=== PATIENT | female | born 1975 | race Caucasian/White ===

== ENCOUNTER 2020-05-17 11:52 | Emergency (ER) | payer OTHER, SELFPAY ==
--- NOTE | ~2020-05-17 | XR_ITS ---
EXAMINATION: XR chest 1V portable EXAM DATE: 05/17/2020 14:04 INDICATION: Fever. TECHNIQUE: Portable AP frontal chest x-ray was obtained. There is no prior study for comparison. FINDINGS: The lungs are clear. There are no pleural effusions. Cardiac silhouette is prominent but magnified on this AP technique. There is no pneumothorax suspected. The bones and soft tissues are unremarkable. There is aortic arteriosclerosis. There are cholecystectomy clips. IMPRESSION: No acute cardiopulmonary findings. Reviewed, dictated and finalized at location B.
--- NOTE | ~2020-05-17 | XR_ITS ---
EXAMINATION: XR finger 1st RT min 2V EXAM DATE: 05/17/2020 12:35 INDICATION: Possible foreign body under right thumb nailbed. Pain. TECHNIQUE: Right 1st finger frontal, lateral and oblique projections obtained and reviewed. There is no prior study for comparison. FINDINGS: There are no acute right 1st finger fractures or dislocations identified. There is no subc utaneous gas. The soft tissue is unremarkable. There are no radiopaque foreign bodies. There are no bony erosions identified. IMPRESSION: 1. Unremarkable right thumb exam. Reviewed, dictated and finalized at location B.
[2020-05-17 11:55] VITALS: BP 132/81; PULSE 92; RESP 20; TEMP 37.5; O2SAT 99
--- NOTE | 2020-05-17 12:20 | ED.EXTPRO ---
HPI - Extremity Problem General Chief complaint: Skin/Abscess/Foreign Body Stated complaint: fever, hand swelling and pain Time Seen by Provider: 05/17/20 12:01 Source: patient Mode of arrival: ambulatory Limitations: no limitations History of Present Illness HPI Narrative: Patient is a 45-year-old female who presents to emergency department for evaluation of right thumb pain coupled with fever that started last night patient notes mild aching of the thumb but denies injury or trauma patient notes she took ibuprofen with improvement of the fever patient denies any urinary symptoms URI symptoms sick contacts or similar occurrence and on arrival is in the room in no distress. Related Data Home Medications Medication Instructions Recorded Confirmed atorvastatin 05/17/20 escitalopram oxalate mg 05/17/20 hydrocodone-acetaminophen 05/17/20 lorazepam 05/17/20 metformin mg PO 05/17/20 Allergies Allergy/AdvReac Type Severity Reaction Status Date / Time gabapentin Allergy Unknown Nausea and Verified 05/17/20 12:03 Vomiting morphine Allergy Unknown Nausea and Verified 05/17/20 12:03 Vomiting nitrofurantoin Allergy Unknown Nausea and Verified 05/17/20 12:03 Vomiting Sulfa (Sulfonamide Allergy Unknown Vomiting Verified 05/17/20 12:03 Antibiotics) Review of Systems Review of Systems: All systems reviewed & are unremarkable except as noted in HPI and below PMFSH Past Medical History Medical History (Updated 05/17/20 @ 15:08 by Kb Lowe PA-C) Diabetes mellitus Social History Social History Smoking status: Current every day smoker Exam Narrative: Exam Narrative: GENERAL: Well-appearing, well-nourished, and in no acute distress. HEAD: Normocephalic, atraumatic. EYES: PERRLA and EOMI. ENT: Patient with swelling involving CHEST: Clear to auscultation. No respiratory distress. No wheezes rales or rhonchi HEART: Regular rate and rhythm. No murmur heard. Normal peripheral pulses. EXTREMITIES: Normal range of motion. No edema. No deformity of the right thumb SKIN: Warm, dry, no rash. NEURO: No focal deficits. Alert and oriented x3. Neurovascularly intact. Capillary refill less than 2-second PSYCH: Normal mood and affect. Course Course Emergency Course: Patient has been hydrated with blood work and imaging in the emergency department no high risk changes patient made aware of these findings Reevaluation(s) Reevaluation #1: Patient has remained stable denying any thumb pain resting comfortably aware of case findings treatment plan and diagnosis felt appropriate for outpatient reevaluation provided with reasons to return Date: 05/17/20 Time: 14:58 Vital Signs Vital signs: Vital Signs Temperature 99.5 F 05/17/20 11:55 Pulse Rate 92 05/17/20 11:55 Respiratory Rate 20 05/17/20 11:55 Blood Pressure 132/81 05/17/20 11:55 Pulse Oximetry 99 05/17/20 11:55 Temperature 99.5 F 05/17/20 11:55 Pulse Rate 92 05/17/20 11:55 Respiratory Rate 20 05/17/20 11:55 Blood Pressure 132/81 05/17/20 11:55 Pulse Oximetry 99 05/17/20 11:55 MDM - Extremity (Nontraumatic) MDM Narrative Medical decision making narrative: Patient in the room in no distress no high risk changes in the blood work or imaging patient notes that she gets intermittent fevers every year of unknown etiology and that this feels the same. Patient was given medications in the emergency department with improvement. Patient without any obvious signs of infection. Patient denying any thumb pain. Patient felt appropriate for outpatient reevaluation pending COVID testing has been advised to self quarantine until results are obtained. Patient agrees with this plan and also notes she will return if symptoms worsen Imaging Data Radiologist's impression: ITS Impressions Finger X-Ray 05/17/20 12:39 IMPRESSION: 1. Unremarkable right thumb exam.
[2020-05-17 13:14] VITALS: TEMP 39.2
[2020-05-17 13:29] LABS: Add Urine Microscopic? YES; Appearance Urine Clear (Clear); Bilirubin Urine Negative (Negative); Blood Urine 1+ (Negative); Color Urine Colorless (Yellow); Glucose Urine UA Negative (Negative); Ketones Urine Negative (Negative); Leukocyte Esterase Ur Negative LEU/UL (Negative); Nitrate Urine Negative (Negative); Protein Urine Negative (Negative); Urobilinogen Urine Negative mg/dL (<2.0); WBC Urine 0-3 /hpf
[2020-05-17 13:30] LABS: Specific Grav Ur 1.003 (1.001-1.035)
[2020-05-17] MEDS: FAMOTIDINE 20 MG/2 ML VIAL IV PUSH (13:39)
[2020-05-17] MEDS: SODIUM CHLORIDE 0.9% IV 1,000 ML 999 ML IV CONT (13:39)
[2020-05-17 14:02] LABS: Basophils Percent Auto 0.3 % (0.2-1.2); Eosinophils Percent Auto 0.1 % (0-4.4); Immature Granulocyte Absolute 0.02 K/mm3 (0.00-0.031); Immature Granulocyte Percent A 0.3 % (0-0.5); Lymphocytes Absolute Auto 1.53 K/mm3 (0.9-3.2); Lymphocytes Percent Auto 22.6 % (18.3-44.2); Mean Corpuscular HGB Conc 33.3 g/dl (32-36); Mean Corpuscular Hemoglobin 30.9 pg (26-34); Mean Corpuscular Volume 92.8 fl (80-100); Mean Platelet Volume 9.8 fl (7.4-10.4); Monocytes Absolute Auto 0.4 K/mm3 (0.1-0.6); Monocytes Percent Auto 6.4 % (2.6-8.5); Neutrophils Absolute Auto 4.8 K/mm3 (1.3-6.7); Neutrophils Percent Auto 70.3 % (45.5-73.1); Platelet Count Result 262 k/mm3 (150-375); Red Blood Count 4.85 M/mm3 (4.2-5.4); Red Cell Distribution Width 12.5 % (11.5-14.5); White Blood Count 6.8 K/mm3 (4.5-10.0)
[2020-05-17 14:11] LABS: INR 0.9; Prothrombin Time 12.3 Seconds (11.1-14.7)
[2020-05-17 14:15] LABS: Lactic Acid Reflex < 0.5 mmol/L (0.7-2.1)
[2020-05-17 14:16] LABS: Alanine Aminotransferase 26 U/L (4-35); Alkaline Phosphatase 110 U/L (38-126); Aspartate Amino Transferase 29 U/L (14-36); Bilirubin,Total 0.5 mg/dL (0.2-1.3); Blood Urea Nitrogen 7 mg/dL (7-17); CRP 1.9 mg/dL (<1.0); Calcium 9.6 mg/dL (8.4-10.2); Carbon Dioxide 29 mmol/L (22-30); Chloride 100 mmol/L (98-107); Estimated CRCL calculation 82 ml/min; Estimated Glomerular Filt Rate > 60; Glucose 89 mg/dL (65-105); Sodium 139 mmol/L (137-145)
[2020-05-17 14:28] LABS: Erythrocyte Sedimentation Rate 20 mm/hr (0-20)
[2020-05-17 15:08] VITALS: BP 102/59; PULSE 78; RESP 19; TEMP 38.6; O2SAT 97
[2020-05-19 13:33] LABS: SARS-CoV-2 RNA PCR Negative
== END 2020-05-17 15:22 | disposition home or self-care (01) ==
PROVIDERS: Emergency Medicine Emergency Medical Services; Emergency Provider Emergency Medicine; PCP Internal Medicine
DX: R50.9 Fever, unspecified (principal); F17.200 Nicotine dependence, unspecified, uncomplicated; E11.9 Type 2 diabetes mellitus without complications; Z79.84 Long term (current) use of oral hypoglycemic drugs
CPT/HCPCS: 36415; 71045; 73140; 80053; 81001; 83605; 85025; 85610; 85652; 85730; 86140; 87040; 87081; 87635; 87804; 87880; 96361; 96365; 96375; 99284; C9803; J0131; J7030; U0003

== ENCOUNTER 2020-05-21 10:54 | Emergency (ER) | payer OTHER, SELFPAY ==
[2020-05-21 11:02] VITALS: BP 132/80; PULSE 86; RESP 18; TEMP 36.8; O2SAT 97
[2020-05-21 11:33] VITALS: BP 110/69; PULSE 82; RESP 20; O2SAT 98
--- NOTE | 2020-05-21 12:46 | ED.GENADULT ---
HPI - General Adult General Chief complaint: Allergic Reaction Stated complaint: thumb injury/allergic reaction Time Seen by Provider: 05/21/20 12:12 History of Present Illness HPI narrative: Patient is 45 y/o female complaining of right thumb pain starting 4 days ago. She states the her pain is moderate and it's worse with touch. She noticed minimal amount of drainage from under her nail. She does not recall any injury. 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 She denies current fever, chills, nausea or vomiting. Of note, she states that she had a fever 4 days and was evaluated here, but all her labs, COVID test, etc were negative. Her fever has resolved spontaneously since then. She is up to date on Tetanus. Related Data Home Medications Medication Instructions Recorded Confirmed atorvastatin 40 mg PO DAILY 05/21/20 escitalopram oxalate 20 mg PO DAILY 05/21/20 hydrocodone-acetaminophen 1 tablet PO TID PRN 05/21/20 lorazepam 0.5 mg PO Q6H PRN 05/21/20 metformin 500 mg PO DAILY 05/21/20 Allergies Allergy/AdvReac Type Severity Reaction Status Date / Time gabapentin Allergy Severe Swelling Verified 05/21/20 11:37 nitrofurantoin Allergy Severe Anaphylaxis Verified 05/21/20 11:37 [From Macrobid] Sulfa (Sulfonamide Allergy Severe Hives Verified 05/21/20 11:37 Antibiotics) morphine Allergy Intermediate Itching Verified 05/21/20 11:37 Review of Systems Constitutional: Constitutional: Denies chills, Denies fever(s), Denies headache(s) and Denies weakness Eyes: Eyes: Denies blurry vision ENT: Denies headache(s) and Denies neck pain Cardiovascular: Cardiovascular: Denies chest pain and Denies dyspnea Respiratory: Respiratory: Denies cough and Denies dyspnea Gastrointestinal: Gastrointestinal: Denies abdominal pain, Denies diarrhea, Denies nausea and Denies vomiting Genitourinary: Genitourinary: Denies hematuria and Denies dysuria Musculoskeletal: Musculoskeletal: Denies back pain and Denies neck pain Integumentary/Breasts: Skin/Breast: Reports system reviewed and no additional complaints, except as docu and Reports erythema (right thumb) Neurologic: Denies headache(s) and Denies weakness [facility] Social History Social History Gender identity (if verbalized by the patient): Female Exam Const: General: no acute distress and well developed Orientation/consciousness: oriented to person, oriented to place, oriented to time and patient oriented x3 HENMT: Head: normocephalic Ears: external ears normal General nose exam: Normal external nose present Eyes: General: appearance normal, both eyes and all related structures Conjunctivae: conjunctivae normal Neck: Neck: normal visual inspection and full ROM Chest: Chest palpation & inspection: normal inspection of the chest and no tenderness Resp: Effort & Inspection: normal respiratory effort and able to speak in complete sentences Cardio: Rate: regular rate Rhythm: regular rhythm GI: GI Palp: No abdominal tenderness and Yes Soft to palpation Skin: General skin exam: normal color, turgor normal, erythema (tip of right thumb extending to dorsal aspect of right thumb) and other (possible small abscess ~2 mm area tip of thumb at junction with nail tip) Neuro: General: oriented to person, oriented to place, oriented to time and patient oriented x3 Cognition (Neuro): normal cognition Extrem: General: normal to inspection, full ROM and no pedal edema Psych: Appearance: grossly normal Mental Status: mental status grossly normal Affect: normal affect Course Reevaluation(s) Reevaluation #1: Informed patient that early abscess is possible and not completely ruled. Offered patient attempt at I&D, patient declined and wanted to just try antibiotics first. Instructed patient to return if her symptoms worsen. Date: 05/21/20 Vital Signs Vital signs: Vital Signs
[2020-05-21 12:54] VITALS: BP 109/77; PULSE 70; RESP 16; O2SAT 97
[2020-05-21 13:00] LABS: Basophils Percent Auto 0.4 % (0.2-1.2); Eosinophils Absolute Auto 0.1 K/mm3 (0-0.3); Eosinophils Percent Auto 1.1 % (0-4.4); Hematocrit 37.9 % (37.0-47.0); Immature Granulocyte Absolute 0.02 K/mm3 (0.00-0.031); Immature Granulocyte Percent A 0.4 % (0-0.5); Lymphocytes Absolute Auto 2.13 K/mm3 (0.9-3.2); Mean Corpuscular HGB Conc 34.3 g/dl (32-36); Mean Corpuscular Hemoglobin 31.3 pg (26-34); Mean Corpuscular Volume 91.1 fl (80-100); Mean Platelet Volume 9.5 fl (7.4-10.4); Monocytes Absolute Auto 0.3 K/mm3 (0.1-0.6); Monocytes Percent Auto 6.2 % (2.6-8.5); Neutrophils Absolute Auto 2.9 K/mm3 (1.3-6.7); Neutrophils Percent Auto 52.9 % (45.5-73.1); Platelet Count Result 250 k/mm3 (150-375); Red Blood Count 4.16 M/mm3 (4.2-5.4); Red Cell Distribution Width 12.5 % (11.5-14.5); White Blood Count 5.5 K/mm3 (4.5-10.0)
[2020-05-21 13:14] LABS: Blood Urea Nitrogen 8 mg/dL (7-17); Calcium 9.2 mg/dL (8.4-10.2); Carbon Dioxide 26 mmol/L (22-30); Chloride 104 mmol/L (98-107); Estimated CRCL calculation 94 ml/min; Estimated Glomerular Filt Rate > 60; Glucose 88 mg/dL (65-105); Potassium 3.9 mmol/L (3.4-5.0); Sodium 139 mmol/L (137-145)
--- NOTE | 2020-05-21 14:41 | PC.NURSE ---
Called patient and advised that prescriptions and discharge instructions would be left at intake desk if she would like to pick them up at her convenience. Patient agreed to picking tech packet.
== END 2020-05-21 14:29 | disposition home or self-care (01) ==
PROVIDERS: Emergency Provider Emergency Medicine; PCP Internal Medicine
DX: L03.011 Cellulitis of right finger (principal)
CPT/HCPCS: 36415; 80048; 85025; 99283

== ENCOUNTER 2021-08-10 07:24 | Outpatient (CLI) | payer OTHER, SELFPAY ==
--- NOTE | 2021-08-22 17:09 | WPDHOMESLEEP ---
Sleep Study - Home Unattended Date of Study: 08/10/21 <Lelia Mondragon DO - Last Filed: 08/22/21 17:30> Ordering Provider: Oc Riddle APRN <Lelia Mondragon DO - Last Filed: 08/22/21 17:30> Interpreting Provider: Lelia Mondragon DO <Lelia Mondragon DO - Last Filed: 08/22/21 17:30> Home Sleep Study Type: Apnea Link Air <Lelia Mondragon DO - Last Filed: 08/22/21 17:30> Height: 1.6 m <Lelia Mondragon DO - Last Filed: 08/22/21 17:30> Weight: 72.575 kg <Lelia Mondragon DO - Last Filed: 08/22/21 17:30> Body Mass Index: 28.3 <Lelia Mondragon DO - Last Filed: 08/22/21 17:30> Neck Circumference (inches): 14 <Lelia Mondragon DO - Last Filed: 08/22/21 17:30> Globe: 12 <Lelia Mondragon DO - Last Filed: 08/22/21 17:30> Reason for Sleep Study The patient has a history of obstructive sleep apnea. She stopped using her machine and equipment because at left permanent paul on her face. She stopped using her CPAP machine for an unspecified amount of time. She is wanting a new machine and supplies. <Lelia Mondragon DO - Last Filed: 08/22/21 17:30> Sleep History The patient is a 46-year-old female with history of KIRILL, anxiety, insulin resistance and hyperlipidemia that had a HSAT done for hypersomnia. The patient had a PSG at [facility] in July 2012 that showed mild sleep apnea with an apnea-hypopnea index of 7.5. She had tried CPAP but had difficulty tolerating the masks and pressure. She then did a trial of an oral appliance but it caused mouth and jaw discomfort. She has not been using the machine and currently has daytime fatigue and hypersomnia. She ends up taking naps but does not feel refreshed. She wakes up with morning headaches. She snores excessively at night. She will often awaken from sleep short of breath. She often has heart palpitations at night. She denies falling asleep while driving. She rarely has trouble at work due to sleepiness. She denies sleep paralysis as well as hypnapompic/hypnagogic hallucinations. she denies cataplexy. She rarely has nightmares. She often feels sad and depressed. She does have muscular tension and occasional body jerks. She often kicks throughout the night. She denies crawling and aching feelings in her legs as well as leg pain. She denies grinding teeth during sleep as well as morning jaw pain. She frequently wakes up feeling stiff in the morning with sore and achy muscles. She typically goes to bed at 8:00 p.m. on the week days and wakes up around 4:00 a.m.. On the weekends she goes to bed at 9:00 p.m. and wakes up at 4:00 a.m.. She usually gets 6-8 hours of sleep per night. It usually takes her 5 minutes to fall asleep. She wakes up 3-4 times per night for undetermined reasons. She can fall back asleep within minutes. She states that her sleep is often disturbed by hot flashes. She denies consuming any caffeinated beverages prior to going to bed. She denies any physical exercise before bed. She does watch TV prior to falling asleep. She does take afternoon naps that her unrefreshing. She currently smokes 3/4 pack of cigarettes per day. She does drink 3-4 caffeinated beverages per day. She denies alcohol and recreational drug use. <Lelia Mondragon DO - Last Filed: 08/22/21 17:30> [facility] Past Medical History Medical History: Medical History Diabetes mellitus KIRILL (obstructive sleep apnea) <Lelia Mondragon DO - Last Filed: 08/22/21 17:30> Social History Social History: Social History Smoking status: Current every day smoker Gender identity (if verbalized by the patient): Female <Lelia Mondragon, DO - Last Filed: 08/22/21 17:30> Medications Home Medications: Home Medications
[2021-08-22 17:29] VITALS: BMI 28.3
== END 2021-08-13 11:16 | disposition home or self-care (01) ==
LOC: ANHCSM 07:25
PROVIDERS: Visit Provider Nurse Practitioner Family
DX: G47.33 Obstructive sleep apnea (adult) (pediatric) (principal); G47.10 Hypersomnia, unspecified; Z86.69 Personal history of other diseases of the nervous system and sense organs
CPT/HCPCS: 95806

== ENCOUNTER → 2023-08-15 12:26 | Outpatient (CLI) | payer OTHER, SELFPAY ==
--- NOTE | ~2023-08-15 | DEXA_ITS ---
Bone Density Report Name: STEPHANI RAMIREZ Age: 48 Sex: Female Ethnicity: White Date of : 1975 Indication: postmenopausal; screening for osteoporosis; hysterectomy; Referring Provider: AMBER CEDEÑO Study: Bone densitometry was performed. Exam Date: August 15, 2023 Accession number: [id number] Bone Density: Region BMD T-score Z-score Classification AP Spine (L1-L4) 0.860 -1.7 -0.9 Osteopenia Femoral Neck (Left) 0.729 -1.1 -0.3 Osteopenia Total Hip (Left) 0.859 -0.7 -0.2 Normal Femoral Neck (Right) 0.665 -1.7 -0.9 Osteopenia Total Hip (Right) 0.857 -0.7 -0.2 Normal Total Hip Mean 0.858 -0.7 -0.2 Normal World Health Organization criteria for BMD impression classify patients as: Normal (T-score at or above -1.0), Osteopenia (T-score between -1.0 and -2.5), or Osteoporosis (T-score at or below -2.5). 10-year Fracture Risk(1): Major Osteoporotic Fracture 4.9% Hip Fracture 0.8% Reported Risk Factors: [place] (), Neck BMD=0.665, BMI=28.6, smoking (1) FRAX(R) Version 3.08. Fracture probability calculated for an untreated patient. Fracture probability may be lower if the patient has received treatment. Clinical Information Provided by Patient: Smokes Has used the following medications: Vitamin D, MTV Has the following medical conditions: Hysterectomy Patient maximum height was 63 Menopause Age: 32 No regular weight bearing exercise Does not regularly consume dairy products Drinks caffeinated beverages Onset of menses at age 13 Number of children 2 Missed period for more than 6 months in a row Impression: The patient has low bone mass, based on the Total Spine T-score. The patient has an estimated ten-year risk of hip fracture of 0.8% and an estimated ten-year risk of major fracture of 4.9%, based on the WHO FRAX algorithm. The patient has risk factors, including: smoking. Discussion: BONE DENSITY IS LOW AT ONE OR MORE SKELETAL SITES. This patient's lowest T-score is low at one or more skeletal sites. It meets the World Health Organization's (WHO) criteria for ?low bone mass? (T-score between -1.0 and -2.5). The patient's 10-year risk of fracture as calculated by FRAX is less than the threshold where pharmacological therapy is recommended by the National Osteoporosis Foundation (NOF). However, all treatment decisions require clinical judgment and consideration of individual patient factors, including patient preferences, comorbidities, previous drug use, risk factors not captured in the FRAX model (e.g., frailty, falls, vitamin D deficiency, increased bone turnover, interval significant decline in bone density) and possible under or overestimation of fracture risk by FRAX. The patient should follow a healthful lifestyle (good nutrition with adequate calcium and vitamin D, an
== END ==
PROVIDERS: Visit Provider Obstetrics & Gynecology Gynecology
DX: Z78.0 Asymptomatic menopausal state (principal); M85.89 Other specified disorders of bone density and structure, multiple sites
CPT/HCPCS: 77080

== ENCOUNTER 2024-01-30 06:48 | Outpatient (CLI) | payer OTHER, SELFPAY ==
--- NOTE | ~2024-01-30 | CT_ITS ---
NAME: Kaylen Dunlap DATE OF : 71 EXAMINATION: CT ABDOMEN AND PELVIS W/WO DATE: 01/30/24 INDICATION: Hematuria. TECHNIQUE: Computed tomography (CT) of the abdomen and pelvis was performed without and with intraven ous contrast using a total of 130 mL Omnipaque-350 intravenous contrast with a double-bolus technique for simultaneous opacification of the renal parenchyma and renal collecting system. Automated exposu re control and iterative reconstruction technique were employed. The dose-length product was 975 mGy- cm. COMPARISON: None FINDINGS: The visualized portions of the lung bases are clear without pneumonia or pleural effusion. The heart size is normal. There are coronary artery calcifications. No pericardial effusion. Calcifications in the liver and spleen are consistent with old granulomatous disease. There are changes of cholecystect shane. The pancreas and adrenal glands are normal. There is no urolithiasis. There are cysts in the kid neys measuring up to 9 mm on the right. The ureters or bladder are well opacified and are normal. The re are no dilated loops of bowel. The appendix is normal. There are no pathologically enlarged lymph nodes. Aortic atherosclerosis is noted. There is no free intraperitoneal fluid. There is mild lumbar spondylosis. IMPRESSION: 1. No etiology for hematuria. Reviewed, dictated and finalized at location A.
[2024-01-30 07:29] LABS: Estimated Glomerular Filt Rate > 60
== END 2024-01-30 06:49 | disposition home or self-care (01) ==
PROVIDERS: Visit Provider Urology
DX: R31.29 Other microscopic hematuria (principal)
CPT/HCPCS: 36415; 74178; Q9967

== ENCOUNTER 2024-02-09 10:26 | Outpatient (CLI) | payer OTHER, SELFPAY ==
--- NOTE | ~2024-02-09 | CT_ITS ---
EXAMINATION: CT lung screening DATE: 02/09/2024 10:42 INDICATION: Personal history of nicotine dependence TECHNIQUE: Computed tomography (CT) of the chest was performed without intravenous contrast. The dose -length product was 93.45 mGy-cm. Automated exposure control and iterative reconstruction technique w ere employed. COMPARISON: None FINDINGS: Heart size normal. No thoracic lymphadenopathy. No significant pleural or pericardial effus ion. Status post cholecystectomy. There are calcified granulomas of the liver and spleen. No endobron chial lesions. No pneumothorax. No focal consolidation. No suspicious pulmonary nodules or masses. No focal lytic or blastic lesions. IMPRESSION: 1. Lung-RADS category 1: Negative. Continue annual screening with noncontrast low-dose chest CT in 12 months. Reviewed, dictated and finalized at location B. IMPRESSION: 1. Lung-RADS category 1: Negative. Continue annual screening with noncontrast l ow-dose chest CT in 12 months.
== END 2024-02-09 10:27 | disposition home or self-care (01) ==
LOC: ANHIMG 10:29
PROVIDERS: Visit Provider Nurse Practitioner Family
DX: Z12.2 Encounter for screening for malignant neoplasm of respiratory organs (principal); Z87.891 Personal history of nicotine dependence
CPT/HCPCS: 71271

== ENCOUNTER 2025-02-09 09:40 | Outpatient (CLI) | payer OTHER, SELFPAY ==
--- NOTE | ~2025-02-09 | CT_ITS ---
EXAMINATION: CT lung screening DATE: 02/09/2025 10:06 INDICATION: Z87.891 - Personal history of nicotine dependence TECHNIQUE: Computed tomography (CT) of the chest was performed without intravenous contrast. Addition al 3D reconstructions utilizing coronal maximum intensity projection (MIP) were performed. Automated exposure control and iterative reconstruction technique were employed. The dose-length product was 72 .90 mGy-cm. COMPARISON: 01/11/2024 FINDINGS: A couple unchanged 2 mm nodules in the right lower lobe. No new or enlarging pulmonary nodules, pneum onia, pulmonary edema or pleural effusion. Heart size is normal. Atherosclerotic coronary artery calc ification. No pericardial effusion. Thoracic aorta is normal in caliber. No pathologically enlarged t horacic lymphadenopathy. Cholecystectomy clips the gallbladder fossa. Splenic calcific lesions consis tent with old granulomatous disease. Mild thoracic spondylosis. IMPRESSION: 1. . Lung-RADS category 2: Benign appearance or behavior. Continue annual screening with noncontrast low-dose chest CT in 12 months. Reviewed, dictated and finalized at location B. IMPRESSION: 1. . Lung-RADS category 2: Benign appearance or behavior. Continue annual scree eileen with noncontrast low-dose chest CT in 12 months.
--- OUTSIDE RECORDS SUMMARY | 2025-02-09 10:41 | XMS_ITS | Encounter Summary ---
Author Organization [facility] Address [address] [place] [address] Care Team Providers Care Head Of Mobile Name Role Phone Monty Cervantes MD Primary Care Provider Encounter Details Date Type Department Care Team (Late st Contact Info) Description 11/19/2005 Outpatient Historical [facility] Internal Medicine Medical [place] [facility] [address] [place] [address] Monty Cervantes MD [facility] [address] [place] [address] Social History Tobacco Use Types Packs/Day Years Used Date Smoking Tobacco: Never Assessed Comments Unknown Sex and Gender Information Value Date Recorded Sex Assigned at Not on file 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 Gender Identity Not on file Sexual Orientation Not on file documented as of this encounter Last Filed Vital Signs Vital Sign Reading Time Taken Comments Blood Pressure - - Pulse - - Temperature 533.3 C (992 F) 11/19/2005 11:00 AM FINANCE ADMINISTRATOR Respiratory Rate - - Oxygen Saturation - - Inhaled Oxygen Concentration - - Weight - - Height - - Body Mass Index - - documented in this encounter Plan of Treatment Upcoming Encounters Date Type Department Care Team (Late st Contact Info) Description 02/17/2025 9:30 AM CDT Office Visit [facility] Internal Medicine [facility] [address] [address] Monty Cervantes MD [address] [facility] [address] [address] 02/23/2025 8:00 AM CDT Office Visit [facility] Heart and Vascular At [facility] [address] [facility] [place] [address] Monty Cervantes MD [address] [address] Austin Ackerman MD [address] [place] [address] 08/22/2025 11:45 AM CDT Office Visit [facility] Internal Medicine Medical [place] A [facility] [address] [address] Monty Cervantes MD [address] [facility] [address] [address] documented as of this encounter Visit Diagnoses Not on filedocumented in this encounter Care Teams Head Of Mobile Relationship Specialty Start Date End Date Monty Cervantes MD [address] [address] PCP - General 12/06/05 documented as of this encounter
--- OUTSIDE RECORDS SUMMARY | 2025-02-09 10:41 | XMS_ITS | Encounter Summary ---
Author Organization [facility] Address [address] [place] [address] Care Team Providers Care Customs House Broker Name Role Phone Monty Cervantes MD Primary Care Provider Encounter Details Date Type Department Care Team (Late st Contact Info) Description 05/03/2002 Outpatient Historical [facility] Internal Medicine [facility] [address] [facility] [address] [facility] [place] [address] Monty Cervantes MD [address] [place] [address] Social History Tobacco Use Types Packs/Day Years Used Date Smoking Tobacco: Never Assessed Comments Unknown Sex and Gender Information Value Date Recorded Sex Assigned at Not on file 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 Gender Identity Not on file Sexual Orientation Not on file documented as of this encounter Plan of Treatment Upcoming Encounters Date Type Department Care Team (Late st Contact Info) Description 02/17/2025 9:30 AM CDT Office Visit [facility] Internal Medicine [facility] [address] [place] [address] Monty Cervantes MD [address] [place] [address] [address] [place] [address] 02/23/2025 8:00 AM CDT Office Visit [facility] Heart and Vascular At [facility] [address] [facility] [address] [place] [address] Monty Cervantes MD [address] [facility] [address] [address] Austin Ackerman MD [address] [facility] [address] [place], [place] [id number] 08/22/2025 11:45 AM CDT Office Visit [facility] Internal Medicine Medical [place] [facility] [address] [facility] [address] [phone] Monty Cervantes MD [address] [facility] [address] [place], [place] [id number] documented as of this encounter Visit Diagnoses Not on filedocumented in this encounter Care Teams Customs House Broker Relationship Specialty Start Date End Date Monty Cervantes MD [address] [facility] [address] [place], [place] [id number] PCP - General 12/06/05 documented as of this encounter
--- OUTSIDE RECORDS SUMMARY | 2025-02-09 10:41 | XMS_ITS | Encounter Summary ---
Author Organization [facility] Address [address] [place] [address] Care Team Providers Care Manager Data Center Name Role Phone Monty Cervantes MD Primary Care Provider Encounter Details Date Type Department Care Team (Late st Contact Info) Description 06/27/2005 Outpatient Historical [facility] [address] [facility] [address] [place] [address] Monty Cervantes MD [address] [place] [address] [address] [place] [address] Social History Tobacco Use Types Packs/Day Years Used Date Smoking Tobacco: Never Assessed Comments Unknown Sex and Gender Information Value Date Recorded Sex Assigned at Not on file 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 Gender Identity Not on file Sexual Orientation Not on file documented as of this encounter Last Filed Vital Signs Vital Sign Reading Time Taken Comments Blood Pressure 112/78 06/27/2005 1:45 PM CDT Pulse 74 06/27/2005 1:45 PM CDT Temperature - - Respiratory Rate - - Oxygen Saturation - - Inhaled Oxygen Concentration - - Weight 69.9 kg (154 lb) 06/27/2005 1:45 PM CDT Height 160 cm (5' 3 ) 06/27/2005 1:45 PM CDT Body Mass Index 27.28 06/27/2005 1:45 PM CDT documented in this encounter Plan of Treatment Upcoming Encounters Date Type Department Care Team (Late st Contact Info) Description 02/17/2025 9:30 AM CDT [facility] A [facility] [address] [facility] [address] [address] Monty Cervantes MD [address] [facility] [address] [place], [place] [id number] 02/23/2025 8:00 AM CDT [facility] At [facility] [address] [facility] [address] [place] [phone] Monty Cervantes MD [address] [facility] [address] [place] [address] Austin Ackerman MD [address] [facility] [address] [place], [place] [id number] 08/22/2025 11:45 AM CDT Office [facility] Internal Medicine [facility] A [facility] [address] [facility] [address] [address] Monty Cervantes MD [address] [facility] [address] [place], [place] [id number] documented as of this encounter Visit Diagnoses Not on filedocumented in this encounter Care Teams Manager Data Center Relationship Specialty Start Date End Date Monty Cervantes MD [address] [facility] [address] [place], [place] [phone] PCP - General 12/06/05 documented as of this encounter
--- OUTSIDE RECORDS SUMMARY | 2025-02-09 10:41 | XMS_ITS | Encounter Summary ---
Author Organization [facility] Address 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 Gender Identity Not on file Sexual Orientation Not on file documented as of this encounter Plan of Treatment Upcoming Encounters Date Type Department Care Team (Late st Contact Info) Description 02/17/2025 9:30 AM CDT Office Visit [facility] Internal Medicine Medical [place] A [facility] [address] [facility] [address] [place] [address] Monty Cervantes MD [address] [facility] [address] [place] [address] 02/23/2025 8:00 AM CDT Office Visit [facility] Heart and Vascular At [facility] [address] [facility] [address] [place] [address] Monty Cervantes MD [address] [facility] [address] [address] Austin Ackerman MD [address] [facility] [address] [place] [address] 08/22/2025 11:45 AM CDT Office Visit [facility] Internal Medicine Medical [place] A [facility] [address] [facility] [address] [address] Monty Cervantes MD [address] [facility] [address] [place] [address] documented as of this encounter Visit Diagnoses Diagnosis Twin , antepartum- Primary documented in this encounter Care Teams Simulation Specialist Relationship Specialty Start Date End Date Monty Cervantes MD [address] [facility] [address] [address] PCP - General 12/06/05 documented as of this encounter
--- OUTSIDE RECORDS SUMMARY | 2025-02-09 10:41 | XMS_ITS | Encounter Summary ---
Author Organization [facility] Address 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 [facility] [address] [place] [address] 02/23/2025 8:00 AM CDT Office Visit [facility] Heart and Vascular At [facility] [address] [facility] [address] [place] [address] Monty Cervantes MD [address] [facility] [address] [address] Austin Ackerman MD [address] [facility] [address] [place], [place] [id number] 08/22/2025 11:45 AM CDT Office Visit [facility] Internal Medicine Medical [place] [facility] [address] [facility] [address] [address] Monty Cervantes MD [address] [facility] [address] [place], [place] [id number] documented as of this encounter Visit Diagnoses Diagnosis Screening for malignant neoplasm of the cervix- Primary documented in this encounter Care Teams Electrical Continuity Inspector Relationship Specialty Start Date End Date Monty Cervantes MD [address] [facility] [address] [place], [place] [phone] PCP - General 12/06/05 documented as of this encounter
--- OUTSIDE RECORDS SUMMARY | 2025-02-09 10:41 | XMS_ITS | Encounter Summary ---
Author Organization [facility] Address [address] [place] [address] Care Team Providers Care Him Tech Name Role Phone Monty Cervantes MD Primary Care Provider Reason for Visit * Reason Comments Medication Refill Encounter Details Date Type Department Care Team (Late st Contact Info) Description 09/07/2019 Refill [facility] Internal Medicine Medical [facility] [address] [facility] [address] [place] [address] Monty Cervantes MD [address] 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 Gender Identity Not on file Sexual Orientation Not on file Occupation Industry Job Start Date Job End Date Not on file Not on file Not on file Not on file documented as of this encounter Miscellaneous Notes * Telephone Encounter - Irma Negro, Shalom - 09/07/2019 2:53 PM CDT LAST OV 08-26-19 documented in this encounter Plan of Treatment Upcoming Encounters Date Type Department Care Team (Late st Contact Info) Description 02/17/2025 9:30 AM CDT Office Visit [facility] Internal Medicine [facility] 189 [address] [facility] [address] [address] Monty Cervantes MD [address] [place] [address] [address] [place] [address] 02/23/2025 8:00 AM CDT Office Visit [facility] Heart and Vascular At [facility] [address] [facility] [address] [place] [address] Monty Cervantes MD [address] [place] [address] [address] [place] [address] Austin Ackerman MD [address] [facility] [address] [place] [address] 08/22/2025 11:45 AM CDT Office Visit [facility] Internal Medicine [facility] A [facility] 189 [address] [facility] [address] [place] [address] Monty Cervantes MD [address] [place] [address] [address] [place] [address] documented as of this encounter Visit Diagnoses Not on filedocumented in this encounter Care Teams Him Tech Relationship Specialty Start Date End Date Monty Cervantes MD [address] [place] [address] [address] [place], [place] [phone] PCP - General 12/06/05 documented as of this encounter
--- OUTSIDE RECORDS SUMMARY | 2025-02-09 10:41 | XMS_ITS | Encounter Summary ---
Author Organization [facility] Address [address] [place] [address] Care Team Providers Care Plate Mill Mill Hand Name Role Phone Monty Cervantes MD Primary Care Provider Encounter Details Date Type Department Care Team (Late st Contact Info) Description 12/06/2005 Outpatient Historical [facility] Internal Medicine Medical [facility] [address] [facility] [address] [place] [address] Monty Cervantes MD [address] [place] [address] [address] [place] [address] Social History Tobacco Use Types Packs/Day Years Used Date Smoking Tobacco: Never Assessed Comments Unknown Sex and Gender Information Value Date Recorded Sex Assigned at Not on file 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 Gender Identity Not on file Sexual Orientation Not on file documented as of this encounter Last Filed Vital Signs Vital Sign Reading Time Taken Comments Blood Pressure 110/80 12/06/2005 3:00 PM STOCK CONTROL CLERK Pulse 80 12/06/2005 3:00 PM STOCK CONTROL CLERK Temperature 37.5 C (99.5 F) 12/06/2005 3:00 PM STOCK CONTROL CLERK Respiratory Rate - - Oxygen Saturation - - Inhaled Oxygen Concentration - - Weight 69.4 kg (153 lb) 12/06/2005 3:00 PM STOCK CONTROL CLERK Height - - Body Mass Index 27.1 06/27/2005 1:45 PM CDT documented in this encounter Plan of Treatment Upcoming Encounters Date Type Department Care Team (Late st Contact Info) Description 02/17/2025 9:30 AM CDT Office Visit [facility] Internal Medicine [facility] A [facility] [address] [facility] [address] [address] Monty Cervantes MD [address] [facility] [address] [place], [place] [address] 02/23/2025 8:00 AM CDT Office Visit [facility] Heart and Vascular At [facility] [address] [facility] [address] [place] [address] Monty Cervantes MD [address] [facility] [address] [place] [address] Austin Ackerman MD [address] [facility] [address] [place], [place] [address] 08/22/2025 11:45 AM CDT Office Visit [facility] Internal Medicine [facility] A [facility] [address] [facility] [address] [address] Monty Cervantes MD [address] [facility] [address] [place] [address] documented as of this encounter Visit Diagnoses Not on filedocumented in this encounter Care Teams Plate Mill Mill Hand Relationship Specialty Start Date End Date Monty Cervantes MD [address] [facility] [address] [place], [place] [phone] PCP - General 12/06/05 documented as of this encounter
--- OUTSIDE RECORDS SUMMARY | 2025-02-09 10:41 | XMS_ITS | Encounter Summary ---
Author Organization [facility] Address 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 Gender Identity Not on file Sexual Orientation Not on file documented as of this encounter Plan of Treatment Upcoming Encounters Date Type Department Care Team (Late st Contact Info) Description 02/17/2025 9:30 AM CDT Office Visit [facility] Internal Medicine Medical [place] A [facility] [address] [facility] [address] [place] [address] Monty Cervantes MD [address] [place] [address] [address] [place] [address] 02/23/2025 8:00 AM CDT Office Visit [facility] Heart and Vascular At [facility] [address] [facility] [address] [place] [phone] Monty Cervantes MD [address] [place] [address] [address] [place] [address] Austin Ackerman MD [address] [facility] [address] [place], [place] [id number] 08/22/2025 11:45 AM CDT Office Visit [facility] Internal Medicine Medical [place] [facility] [address] [facility] [address] [address] Monty Cervantes MD [address] [facility] [address] [place], [place] [phone] documented as of this encounter Visit Diagnoses Not on filedocumented in this encounter Care Teams Gas Engine Repairer Relationship Specialty Start Date End Date Monty Cervantes MD [address] [facility] [address] [place], [place] [id number] PCP - General 12/06/05 documented as of this encounter
--- OUTSIDE RECORDS SUMMARY | 2025-02-09 10:41 | XMS_ITS | Encounter Summary ---
Author Organization [facility] Address 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 [facility] [address] [place] [address] 02/23/2025 8:00 AM CDT Office Visit [facility] Heart and Vascular At [facility] [address] [facility] [address] [place] [address] Monty Cervantes MD [address] [facility] [address] [address] Austin Ackerman MD [address] [facility] [address] [place] [address] 08/22/2025 11:45 AM CDT Office Visit [facility] Internal Medicine Medical [place] A [facility] [[email or web address] 189 [address] [facility] [address] [address] Monty Cervantes MD [address] [facility] [address] [place] [address] documented as of this encounter Visit Diagnoses Diagnosis Twin , antepartum- Primary documented in this encounter Care Teams Science Faculty Member Relationship Specialty Start Date End Date Monty Cervantes MD [address] [facility] [address] [address] PCP - General 12/06/05 documented as of this encounter
--- OUTSIDE RECORDS SUMMARY | 2025-02-09 10:41 | XMS_ITS | Encounter Summary ---
Author Organization [facility] Address 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 Gender Identity Not on file Sexual Orientation Not on file documented as of this encounter Plan of Treatment Upcoming Encounters Date Type Department Care Team (Late st Contact Info) Description 02/17/2025 9:30 AM CDT Office Visit [facility] Internal Medicine Medical [place] [facility] 189 [address] [facility] [address] [place] [address] Monty Cervantes MD [address] [place] [address] [address] [place] [address] 02/23/2025 8:00 AM CDT Office Visit [facility] Heart and Vascular At [facility] [address] [facility] [address] [place] [address] Monty Cervantes MD [address] [place] [address] [address] [place] [address] Austin Ackerman MD [address] [facility] [address] [place], [place] [address] 08/22/2025 11:45 AM CDT Office Visit [facility] Internal Medicine Medical [place] A [facility] 189 [address] [facility] [address] [address] Monty Cervantes MD [address] [facility] [address] [place], [place] [phone] documented as of this encounter Visit Diagnoses Not on filedocumented in this encounter Care Teams Clinical Cytogeneticist Scientist Relationship Specialty Start Date End Date Monty Cervantes MD [address] [facility] [address] [place], [place] [phone] PCP - General 12/06/05 documented as of this encounter
--- OUTSIDE RECORDS SUMMARY | 2025-02-09 10:41 | XMS_ITS | Clinical Summary ---
Author Organization [facility] Address [address] [place] [address] Phone Care Team Providers Care Production Engine Repairer Name Role Phone Monty Cervantes MD Primary Care Provider [phone] Allergies Active Allergy Reactions Criticality Noted Date Comments Epinephrine Dizziness Low 12/25/2022 Gabapentin Other (See Comments),Anaphylax is High 05/23/2011 Close throat Other reaction(s): Unknown Close throat Morphine Itching Low 12/01/2009 Nitrofurantoin Monohyd/M-Cryst Swelling High 12/20/2008 Sulfa (Sulfonamide Antibiotics) 01/03/2005 Medications aspirin (MIGUEL) 81 mg Oral Tab Take 1 Tab by mouth daily. 30 Tab 11 01/23/20 11 Active Additional Information Patient taking differently:81 mg OralDAILY AT BEDTIME, Informant: Patient, Reported on 12/27/2022 MULTIVITAMIN ORAL Take 1 Tablet by mouth daily. Active Yuvafem 10 mcg tablet USE ONE PER VAGINA TWO TIMES PER WEEK 12/20/19 23 Active cholecalcifer ol, Vitamin D3, 50 mcg (2,000 unit) Tablet Take 1 Tablet (2,000 Units) by mouth daily. 03/04/20 23 Active ibandronate (BONIVA) 150 mg tablet TAKE 1 TABLET BY MOUTH ONCE MONTHLY 09/14/20 23 Active escitalopram oxalate (LEXAPRO) 20 mg tablet TAKE 1 TABLET BY MOUTH DAILY WITH SUPPER. 100 Tablet 3 04/19/20 24 Active propranoloL (INDERAL LA) 60 mg Long Acting 24 hour capsuleIndica tions:General ized anxiety disorder take 1 capsule by mouth every day 100 Capsule 3 09/08/20 24 Active rosuvastatin (CRESTOR) 40 mg tablet Take 1 Tablet (40 mg) by mouth daily. 100 Tablet 3 11/12/20 24 Active LORazepam (ATIVAN) 1 mg tabletIndicat ions:Panic attack Take 0.5-1 Tablets (0.5-1 mg) by mouth 3 times daily as needed for Anxiety. 90 Tablet 3 12/21/19 25 Active omeprazole (PriLOSEC) 20 mg Capsule, Delayed Release(E.C.) TAKE 1 CAPSULE BY MOUTH EVERY DAY 100 Capsule 3 12/29/19 25 Active HYDROcodone-a cetaminophen (NORCO) 5-325 mg tabletIndicat ions:Right hip pain Take 1 Tablet by mouth 3 times daily as needed for Pain, Moderate. For shoulder and hip pain 100 Tablet 01/12/20 25 Active metFORMIN (GLUCOPHAGE XR) 500 mg Extended Release 24 hour tabletIndicat ions:Dysmetab olic syndrome X TAKE 1 TABLET BY MOUTH EVERY DAY 100 Tablet 3 01/18/20 25 Active metFORMIN (GLUCOPHAGE XR) 500 mg Extended Release 24 hour tablet take 1 tablet by mouth every day 100 Tablet 3 01/23/20 24 025 Discontinued HYDROcodone-a cetaminophen (NORCO) 5-325 mg tabletIndicat ions:Right hip pain Take 1 Tablet by mouth 3 times daily as needed for Pain, Moderate. For shoulder and hip pain 100 Tablet 12/14/19 25 025 Discontinued(Re order) Active Problems Problem Noted Date Diagnosed Date Arteriosclerosis of both carotid arteries 2023 Vitamin D deficiency 03/08/2023 LAURENT III (vulvar intraepithelial neoplasia III) 0 12/27/2022 Essential hypertension 02/17/2022 History of colon polyps 09/13/2021 Tear of right gluteus medius tendon 07/05/2020 Tobacco use 01/03/2020 BRCA1 positive 12/12/2015 Migraine with aura and witho ut status migrainosus, not intractable 06/27/2005 Pure hypercholesterolemia 06/27/2005 Dysmetabolic syndrome X 06/27/2005 Anxiety Resolved Problems Problem Noted Date Diagnosed Date Resolved Date Secondary osteoarthritis of hip 07/05/2020 07/05/2020 Aseptic meningitis 08/19/2019 0 Leukocytosis (leucocytosis) 08/19/2019 07/05/2020 Plantar fasciitis, right 07/03/2019 Arthralgia of right temporomandibular joint 12/28/2016 01/03/2020 Chest wall pain 01/25/2011 03/09/2012 Urinary tract infection, site not specified 10/30/2007 03/07/2010 Hematuria 09/15/2007 03/07/2010 Overview (12/12/2010): Updating IMO/ICD9 Code and Description Tobacco use disorder 08/10/2007 016 Polycystic ovaries 2007 1 Overview (02/28/2008): [facility] Routine gynecological examination 08/08/2006 03/07/2010 Screening for diabetes mellitus 08/08/2006 01/25/2011 Encounter for long-term (cur rent) use of other medications 08/08/2006 03/07/2010 Other malaise and fatigue 12/06/2005 Other symptoms involving res piratory system and chest 12/06/2005 01/25/2011 Kidney stone 03/07/2010 Polycystic disease, ovaries 03/07/2010 Tick bite 01/03/2020 Encounters Date Type Department Care Team Description 01/26/2025 External Device Data ST[facility] ABSTRACTION Provider, Abstract 01/25/2025 External Device Data [facility] ABSTRACTION Provider, Abstract 01/18/2025 External Device Data [facility] ABSTRACTION Provider, Abstract 01/15/2025 [facility] [address] [address] Monty Cervantes MD Dysmetabolic syndrome X (Primary Dx) 01/12/2025 [facility] [address] [address] [address] Monty Cervantes MD Right hip pain 12/28/2024 [facility] [address] [address] [address] Monty Cervantes MD 12/20/2024 Refill [facility] Internal [facility] [place] [address] [address] Monty Cervantes MD Panic attack 12/13/2024 Refill [facility] [place] [address] [address] Marti Bhakta, Right hip pain 12/13/2024 Results Follow-Up [facility] [address] [address] Kia Angeles NP US CAROTID DOPPLER 12/10/2024 1:53 PM WEALTH MANAGEMENT ADVISOR - 12/10/2024 11:59 PM WEALTH MANAGEMENT ADVISOR Hospital Encounter [facility] [address] [place] [phone] Kia Angeles, PATRICA Discharge Disposition: Home or Self Care 12/09/2024 External Device Data [facility] ABSTRACTION Provider, Abstract 11/12/2024 Refill [facility] Internal [facility] [address] [address] Monty Cervantes MD from Last 3 Months Immunizations Immunization Administration Dates Next Due ([facility] Y[facility]) COVID- 19 VACCINE, MRNA, SPIKE PROTEIN, LNP, WILIAN(PF) 30 MCG/0.3 ML IM SUSP 08/30/2023 ([facility]) COVID-19 VACCINE - EMERGENCY USE AUTHORIZATION, AD26,COV2S(PF) 0.5 ML IM SUSP 01/20/2021 ([employer])(12 YR UP) COVID-19 VACCINE - EMERGENCY USE AUTHORIZATION, MRNA, [id number](PF) 30 MCG/0.3 ML IM SUSP 03/26/2022 ([facility])(7 YRS UP) TETANUS AN D DIPHTHERIA TOXOIDS, ADSORBED (2 LF OF TETANUS TOXOID AND 2 LF OF DIPHTHERIA TOXOID), 0.5ML (PF), IM 01/22/2009 INFLUENZA VACCINE QUADRIVALE NT RECOMB 18 YR UP PF IM 09/15/2020 Influenza Seasonal Unspecifi ed Formulation IM 08/17/2018,08/26/2017,08/26/2015,2013,08/18/2013,08/17/2012,08/24/2010 Family History Medical History Relation Name Comments Alzheimer's Disease Father Tyrone Heart Disease Father Tyrone Breast Cancer Maternal Aunt 1 Age at onse t 80's Ovarian Cancer Maternal Aunt 2 Cancer Maternal Grandfather Aman breast Ovarian Cancer Maternal Grandmother Ruby Parkinson's Disease Maternal Grandmother Ruby Cancer Mother Isabell ovarian, diet i n her 50's, two sister with same Ovarian Cancer Mother Isabell Heart Disease Paternal Grandmother Robyn Heart Disease Sister 2 Mariela High Cholesterol Sister 2 Mariela Hypertension Sister 2 Mariela Colon Cancer Neg Hx Relation Name Status Comments Brother Alive Father Tyrone Maternal Aunt 1 Alive Maternal Aunt 2 Maternal Grandfather Aman Maternal Grandmother Ruby (Age 42) Mother Isabell (Age 58) Paternal Grandmother Robyn Sister 1 Alive Sister 2 Mariela Social History Tobacco Use Types Packs/Day Years Used Date Smoking Tobacco: Every Day Cigarettes 0.5 20 Smokeless Tobacco: Never Tobacco Cessation:Ready to Q uit: Not Asked; Counseling Given: Not Answered Alcohol Use Standard Drinks/Week Comments Never 0 (1 standard drink = 0.6 oz pur e alcohol) Comments No Sex and Gender Information Value Date Recorded Sex Assigned at Not on file Legal Sex Female 2:38 AM WEALTH MANAGEMENT ADVISOR Gender Identity Not on file Sexual Orientation Not on file Occupation Industry Job Start Date Job End Date Not on file Not on file Not on file Not on file Last Filed Vital Signs Vital Sign Reading Time Taken Comments Blood Pressure 132/78 08/19/2024 12:18 PM CDT Pulse 64 08/19/2024 11:13 AM CDT Temperature 36.4 C (97.5 F) 08/19/2024 11:13 AM CDT Respiratory Rate 16 08/19/2024 11:13 AM CDT Oxygen Saturation 96% 08/19/2024 11:13 AM CDT Inhaled Oxygen Concentration - - Weight 72.7 kg (160 lb 4.8 oz) 08/19/2024 11:13 AM CDT Height 160 cm (5' 3 ) 08/19/2024 11:13 AM CDT Body Mass Index 28.4 08/19/2024 11:13 AM CDT Plan of Treatment Upcoming Encounters Date Type Department Care Team (Late st Contact Info) Description 02/17/2025 9:30 AM CDT Office Visit [facility] [address] [place] [address] Monty Cervantes MD [address] [place] [address] [address] [place], [place] [id number] 02/23/2025 8:00 AM CDT Office Visit [facility] At [facility] [address] [place] [address] Monty Cervantes MD [address] [place] [address] [address] [place] [address] Austin Ackerman MD [address] [address] [place], [place] [id number] 08/22/2025 11:45 AM CDT Office Visit [facility] Internal Medicine [facility] [address] [place] [phone] Monty Cervantes MD [address] [place] [address] [address] [place], [place] [phone] Health Maintenance Due Date Last Done Comments HEPATITIS B VACCINES (1 of 3 - 19+ 3-dose series) 1992 DTAP/TDAP/TD VACCINES (1 - Tdap) 01/23/2009 01/23/20 09 FIT-DNA Q 3 years 2018 FIT/FOBT Q 1 year 2018 Flex Sig/CT Colonography Q 5 years 2018 ZOSTER VACCINE (1 of 2) 2023 COVID-19 Vaccine (2023-2 5 season) 2024 08/30/2023, 03/26/2022, 01/20/2021 Preventative Visit- Commercial 11/17/2024 1 , 08/19/2023, 09/12/2022, Additional history exists BREAST CANCER SCREENING 09/23/2025 09/23/20 24, 03/14/2023, 01/13/2021, Additional history exists COLORECTAL SCREENING 01/11/2026 01/11/2022, 01/11/2022, 02/19/2016, Additional history exists Colorectal Cancer Screening 01/11/2026 Pre-Diabetes and Diabetes Screening 12/18/2027 12/18/2024, 01/27/2024, 02/28/2023, Additional history exists INFLUENZA VACCINE Completed 08/19/2024, , 09/15/2020, Additional history exists Procedures Procedure Name Priority Date/Time Associated Diagnosis Comments LIPID PANEL Routine 12/18/2024 9:17 AM WEALTH MANAGEMENT ADVISOR Pure hypercholesterolemia HEMOGLOBIN A1C Routine 12/18/2024 9:17 AM WEALTH MANAGEMENT ADVISOR Dysmetabolic syndrome X US CAROTID DOPPLER Routine 12/10/2024 2: 42 PM WEALTH MANAGEMENT ADVISOR Atherosclerosis of both carotid arteries MAMMO 3D NIKOLAI SCREEN BILAT W OR WO CAD Routine 09/23/2024 7:31 AM WEALTH MANAGEMENT ADVISOR Breast cancer screening by mammogram COLONOSCOPY REPORT 01/11/2022 9: 45 AM WEALTH MANAGEMENT ADVISOR from Last 3 Months or Most Recently Relevant to Health Maintenance Results * (ABNORMAL) HEMOGLOBIN A1C (12/18/2024 9:17 AM WEALTH MANAGEMENT ADVISOR) HEMOGLOBIN A1C 5.8(H) <5.7 % of total Hgb [facility] Comment: For someone without known diabetes, a hemoglobin A1c value between 5.7% and 6.4% is consistent with prediabetes and should be confirmed with a follow-up test. For someone with known diabetes, a value <7% indicates that their diabetes is well controlled. A1c targets should be individualized based on duration of diabetes, age, comorbid conditions, and other considerations. This assay result is consistent with an increased risk of diabetes. Currently, no consensus exists regarding use of hemoglobin A1c for diagnosis of diabetes for children. ESTIMATED AVERAGE GLUCOSE (MG/DL) 120 mg/dL [facility] ESTIMATED AVERAGE GLUCOSE (MMOL/L) 6.6 mmol/L [facility] Comment: FASTING:YES FASTING: YES Test Performed at: [facility] [address] [address] [place] [address] Ruth[facility] Murillo Vo Blood 12/18/2024 9:17 AM WEALTH MANAGEMENT ADVISOR 12/18/2024 9:18 AM WEALTH MANAGEMENT ADVISOR us Monty Cervantes MD CHEMISTRY ORDERABLES Final Result [facility] [phone] [facility] [address] [address] [place] [address] * (ABNORMAL) LIPID PANEL (12/18/2024 9:17 AM WEALTH MANAGEMENT ADVISOR) CHOLESTEROL 225(H) <200 mg/dL [facility] HDL 58 > OR = 50 mg/dL [facility] TRIGLYCERIDE 120 <150 mg/dL [facility] LDL CALCULATED 143(H) mg/dL (calc) [facility] Comment: Reference range: <100 Desirable range <100 mg/dL for primary prevention; <70 mg/dL for patients with CHD or diabetic patients with > or = 2 CHD risk factors. LDL-C is now calculated using the Chris-Chance calculation, which is a validated novel method providing better accuracy than the Friedewald equation in the estimation of LDL-C. Chris SS et al. KRISTEN. 2013;310(19): 5222-9217 (http://education.[employer]faq/PTG996) CHOL/HDL RATIO 3.9 <5.0 (calc) [facility] NON-HDL CHOLESTEROL 167(H) <130 mg/dL (calc) [facility] Comment: For patients with diabetes plus 1 major ASCVD risk factor, treating to a non-HDL-C goal of <100 mg/dL (LDL-C of <70 mg/dL) is considered a therapeutic option. FASTING:YES FASTING: YES Test Performed at: [address] [address] Magui Olivarez MD Blood 12/18/2024 9:17 AM WEALTH MANAGEMENT ADVISOR 12/18/2024 9:18 AM WEALTH MANAGEMENT ADVISOR us Monty Cervantes MD CHEMISTRY ORDERABLES Final Result [facility] [phone] [address] * US CAROTID DOPPLER (12/10/2024 2:42 PM WEALTH MANAGEMENT ADVISOR) Anatomical Region Laterality Modality Neck Ultrasound 12/10/2024 2:00 PM WEALTH MANAGEMENT ADVISOR Narrative 12/10/2024 5:27 PM WEALTH MANAGEMENT ADVISOR [address] [address] [email or web address] Cerebrovascular Exam Carotid Duplex Patient: Kaylen Dunlap Study ID: [id number] Gender: F : 1975 Age: 49 Race: CAU Height 160cm Study Date: 12/10/2024 Weight: 72.7kg Access. #: [id number] *Referring Physician:Kia Jaimes Jeanette Nicole *Ordering Physician:Kia Jaimes *Survey Operations Director:* Evelyn Parker History: Known carotid disease. PMH: No prior study is available for comparison. Risk factors: The patient is a current tobacco user. Hypertension. Study data: New node Study status: Routine. Procedure: A vascular evaluation was performed. Image quality was good. Carotid duplex study was performed using real-time imaging coupled with Doppler flow analysis. Carotid duplex study. Complete study and Doppler flow study including spectral analysis, color and mosley scale imaging. Birthdate: Patient birthdate: 1975. Age: Patient is 49year(s) old. Sex: gender: female. Height: 160cm. 63in. Weight: 72.7kg. : 160.3lb. Body mass index: BMI: 28.4kg/m^2. Body surface area: BSA: 1.82m^2. Study date: Study date: 12/10/2024. Study time: 02:00 PM. Patient status: Outpatient. Impressions - Left internal carotid: Stenosis: There is a 0-49% stenosis. There is hard and calcified plaque. - Right internal iliac: Stenosis: There is a 0-49% stenosis. There is calcified plaque. The bilateral vertebral arteries are patent with normal antegrade flow. Aorta and systemic arteries: Left internal carotid: Stenosis: There is a 0-49% stenosis. There is hard and calcified plaque. Right internal iliac: Stenosis: There is a 0-49% stenosis. There is calcified plaque. Tables: Arterial flow: + +-----+----+ !Location !V sys!V ed! + +-----+----+ !Right CCA - proximal!91.3 !29.2! + +-----+----+ !Right CCA - distal !78.3 !21.1! + +-----+----+ !Right ICA - proximal!74.6 !29.2! + +-----+----+ !Right ICA - distal !91.3 !39.1! + +-----+----+ !Right ECA !-88.8!21.1! + +-----+----+ !Right vertebral !64 !24.2! + +-----+----+ !Left CCA - proximal !94.9 !32.9! + +-----+----+ !Left CCA - distal !98.8 !36.1! + +-----+----+ !Left ICA - proximal !75.7 !35.7! + +-----+----+ !Left ICA - distal !116 !51.9! + +-----+----+ !Left ECA !93 !22.4! + +-----+----+ !Left vertebral !26.3 !26.3! + +-----+----+ *Velocities are expressed in cm/s, Diameters are expressed in cm Velocity ratios: + +-----+-----+ ! !R PSV!L PSV! + +-----+-----+ !Max ICA/distal CCA!1.2 !1.2 ! + +-----+-----+ Prepared and Electronically Authenticated Roberto Larios [id number]:26:58 Procedure Note Roberto Larios MD - 12/10/[address] [address] [email or web address] Cerebrovascular Exam Carotid Duplex Patient: Kaylen Dunlap Study ID: [id number] Gender: F : 1975 Age: 49 Race: CAU Height 160cm Study Date: 12/10/2024 Weight: 72.7kg Access. #: [id number] *Referring Physician:Kia Jaimes Jeanette Nicole *Ordering Physician:Kia Jaimes *Survey Operations Director:Evelyn Carvalho History: Known carotid disease. PMH: No prior study is available for comparison. Risk factors: The patient is a current tobacco user. Hypertension. Study data: [facility] node Study status: Routine. Procedure: A vascular evaluation was performed. Image quality was good. Carotid duplex studywas performed using real-time imaging coupled with Doppler flow analysis. Carotid duplex study. Complete study and Doppler flow studyincluding spectral analysis, color and mosley scale imaging. Birthdate: Patient birthdate: 1975. Age: Patient is 49year(s) old. Sex: Birthgender: female. Height: 160cm. 63in. Weight: 72.7kg. : 160.3lb. Body massindex: BMI: 28.4kg/m^2. Body surface area: BSA: 1.82m^2. Study date:Study date: 12/10/2024. Study time: 02:00 PM. Patient status: Outpatient. Impressions - Left internal carotid: Stenosis: There is a 0-49% stenosis. There ishard and calcified plaque. - Right internal iliac: Stenosis: There is a 0-49% stenosis. There is calcified plaque. The bilateral vertebral arteries are patent with normal antegrade flow. Aorta and systemic arteries: Left internal carotid: Stenosis: There is a 0-49% stenosis. There is hardand calcified plaque. Right internal iliac: Stenosis: There is a 0-49% stenosis. There iscalcified plaque. Tables: Arterial flow: + +-----+----+ !Location !V sys!V ed! + +-----+----+ !Right CCA - proximal!91.3 !29.2! + +-----+----+ !Right CCA - distal !78.3 !21.1! + +-----+----+ !Right ICA - proximal!74.6 !29.2! + +-----+----+ !Right ICA - distal !91.3 !39.1! + +-----+----+ !Right ECA !-88.8!21.1! + +-----+----+ !Right vertebral !64 !24.2! + +-----+----+ !Left CCA - proximal !94.9 !32.9! + +-----+----+ !Left CCA - distal !98.8 !36.1! + +-----+----+ !Left ICA - proximal !75.7 !35.7! + +-----+----+ !Left ICA - distal !116 !51.9! + +-----+----+ !Left ECA !93 !22.4! + +-----+----+ !Left vertebral !26.3 !26.3! + +-----+----+ *Velocities are expressed in cm/s, Diameters are expressed in cm Velocity ratios: + +-----+-----+ ! !R PSV!L PSV! + +-----+-----+ !Max ICA/distal CCA!1.2 !1.2 ! + +-----+-----+ Prepared and Electronically Authenticated HarrietShabbiran [id number]:26:58 us Kia Angeles INTERNATIONAL MARKETING SPECIALIST US ORDERABLES Fin al Result * MAMMO 3D NIKOLAI SCREEN BILAT W OR WO CAD (09/23/2024 7:31 AM WEALTH MANAGEMENT ADVISOR) Anatomical Region Laterality Modality Breast Bilateral Mammography 09/23/2024 7:31 AM WEALTH MANAGEMENT ADVISOR Impressions 09/23/2024 7:50 AM WEALTH MANAGEMENT ADVISOR IMPRESSION: No mammographic evidence of malignancy in the bilateral breasts. Routine screening mammography is recommended in one year. OVERALL FINAL ASSESSMENT: BI-RADS CATEGORY 1 - Negative. DICTATION LOCATION: [facility] Narrative 09/23/2024 7:50 AM WEALTH MANAGEMENT ADVISOR EXAMINATION: BILATERAL SCREENING DIGITAL MAMMOGRAPHY WITH TOMOSYNTHESIS AND CAD DATE: 09/23/2024 7:31 AM HISTORY: Routine screening mammography. COMPARISON: Mammography with dates ranging from 03/14/2023 to 12/30/2018. TECHNIQUE: A bilateral screening mammogram was performed. Low-dose full-field digital breast tomosynthesis examination was performed with 2D and 3D acquisitions. Examination is read in conjunction with computer aided detection. BREAST COMPOSITION: There are scattered areas of fibroglandular density. FINDINGS: There are no suspicious masses, suspicious calcifications, or other suspicious findings in either breast. There has been no suspicious interval change. Computer aided detection was used in the interpretation of this examination. Procedure Note Adelfo Villegas MD - 09/23/2024 EXAMINATION: BILATERAL SCREENING DIGITAL MAMMOGRAPHY WITH TOMOSYNTHESIS AND CAD DATE: 09/23/2024 7:31 AM HISTORY: Routine screening mammography. COMPARISON: Mammography with dates ranging from 03/14/2023 to 12/30/2018. TECHNIQUE: A bilateral screening mammogram was performed. Low-dose full-field digital breast tomosynthesis examination was performed with 2D and 3D acquisitions. Examination is read in conjunction with computer aided detection. BREAST COMPOSITION: There are scattered areas of fibroglandular density. FINDINGS: There are no suspicious masses, suspicious calcifications, or other suspicious findings in either breast. There has been no suspicious interval change. Computer aided detection was used in the interpretation of this examination. IMPRESSION: No mammographic evidence of malignancy in the bilateral breasts. Routine screening mammography is recommended in one year. OVERALL FINAL ASSESSMENT: BI-RADS CATEGORY 1 - Negative. DICTATION LOCATION: [facility] us Monty Cervantes MD MAMMO ORDERABLES Final Resu lt * COLONOSCOPY REPORT (01/11/2022 9:45 AM WEALTH MANAGEMENT ADVISOR) Narrative Procedure Note Anabelle Vera MD - 01/11/2022 9:44 AM CST [facility] Endoscopy Patient Name: Kaylen Dunlap Procedure Date: 01/11/2022 Date of : 1975 Attending MD: Anabelle Vera MD Procedure: Colonoscopy Indications: Surveillance: Personal history of adenomatous polyps on last colonoscopy > 5 years ago, Last colonoscopy: February 2016 Providers: Anabelle Vera MD Referring MD: Monty Cervantes MD Complications: No immediate complications. Procedure: Informed consent was obtained for the procedure, including moderate sedation after risks were discussed. Based on the pre-procedure assessment, including review of the patient's medical history, medications, allergies, and review of systems, the patient was deemed to be an appropriate candidate for sedation. A timeout was performed. Continuous ECG monitoring, pulse oximetry, blood pressure monitoring, and direct observation were performed. The Colonoscope was introduced through the anus and advanced to the terminal ileum. The colonoscopy was performed without difficulty. The patient tolerated the procedure well. The quality of the bowel preparation was good. Estimated Blood Loss: Estimated blood loss was minimal. Findings: The digital rectal exam was normal. The terminal ileum appeared normal. A 6 mm polyp was found in the ascending colon. The polyp was sessile. The polyp was removed with a cold snare. Resection and retrieval were complete. A 6 mm polyp was found in the hepatic flexure. The polyp was sessile. The polyp was removed with a cold snare. Resection and retrieval were complete. A 2 mm polyp was found in the hepatic flexure. The polyp was sessile. The polyp was removed with a cold biopsy forceps. Resection and retrieval were complete. A 4 mm polyp was found in the rectum. The polyp was sessile. The polyp was removed with a cold snare. Resection and retrieval were complete. A few diverticula were found in the entire colon. The retroflexed view of the distal rectum and anal verge was normal and showed no anal or rectal abnormalities. Impression: - The examined portion of the ileum was normal. - One 6 mm polyp in the ascending colon, removed with a cold snare. Resected and retrieved. - One 6 mm polyp at the hepatic flexure, removed with a cold snare. Resected and retrieved. - One 2 mm polyp at the hepatic flexure, removed with a cold biopsy forceps. Resected and retrieved. - One 4 mm polyp in the rectum, removed with a cold snare. Resected and retrieved. - Diverticulosis in the entire examined colon. - The distal rectum and anal verge are normal on retroflexion view. Recommendation: - Discharge patient to home. - Continue present medications. - Await pathology results. - If you are active on My [employer], you will receive the biopsy results as a message via that account. If you do not have My [employer] account, you will receive a call from my office regarding your results. If you do not hear from us about your results within a week, please contact our office at [phone] . Anabelle Vera MD 01/11/2022 9:44:57 AM This report has been signed electronically. Number of Addenda: [phone] ; [place] [address] Anabelle Vera MD GI PROCEDURE ORDERABLES Final Result from Last 3 Months or Most Recently Relevant to Health Maintenance Insurance [facility] [employer] Web [id number] RX [employer] RX Member Subscriber Plan / Payer (Ef fective 2022-Present) Name:Kaylen Dunlap Relation to Subscriber:Self Name:Kaylen Dunlap Subscriber ID:Not on file Payer ID:Not on file Group ID:[id number] Type:RX Commercial Address: [address] Advance Directives For more information, please contact: [phone] * Full Code (Latest Code Status on File) Date Activated Date Inactivated Comments 12/30/2022 1:31 PM 12/30/2022 5:56 PM * Full Code Date Activated Date Inactivated Comments 12/30/2022 7:14 AM 12/30/2022 1:31 PM * Full Code Date Activated Date Inactivated Comments 01/11/2022 8:29 AM 01/11/2022 12:17 PM * Full Code Date Activated Date Inactivated Comments 08/19/2019 6:34 PM 08/20/2019 4:21 PM * Full Code Date Activated Date Inactivated Comments 02/19/2016 7:08 AM 02/19/2016 11:20 AM Care Teams Production Engine Repairer Relationship Specialty Start Date End Date Monty Cervantes MD [address] [place] [address] PCP - General 12/06/05
--- OUTSIDE RECORDS SUMMARY | 2025-02-09 10:41 | XMS_ITS | Encounter Summary ---
Author Organization [facility] Address [address] [place] [address] Care Team Providers Care Systems Coordinator Name Role Phone Monty Cervantes MD Primary Care Provider Encounter Details Date Type Department Care Team (Latest Contact Info) Description 12/06/2005 Outpatient Historical [facility] Monty Mohamud MD [address] [place] [address] MALAISE AND FATIGUE NEC (Primary Dx) Social History Tobacco Use Types Packs/Day Years Used Date Smoking Tobacco: Never Assessed Comments Unknown Sex and Gender Information Value Date Recorded Sex Assigned at Not on file Legal Sex Female 2:38 AM BILLER Gender Identity Not on file Sexual Orientation Not on file documented as of this encounter Plan of Treatment Upcoming Encounters Date Type Department Care Team (Late st Contact Info) Description 02/17/2025 9:30 AM CDT Office Visit [facility] Internal Medicine Medical [place] A [place] [address] [facility] [address] [place] [address] Monty Cervantes MD [address] [place] [address] 02/23/2025 8:00 AM CDT Office Visit [facility] At [facility] [address] [place] [address] Monty Cervantes MD [address] [facility] [address] [place], [place] [phone] Austin Ackerman MD [address] [place], [place] [phone] 08/22/2025 11:45 AM CDT Office Visit [facility] Internal Medicine Medical [place] A [place] [address] [address] Monty Cervantes MD [address] [facility] [address] [place], [place] [phone] documented as of this encounter Procedures Procedure Name Priority Date/Time Associated Diagnosis Comments CBC WITH DIFFERENTIAL Routine 12/06/2005 4:35 PM BILLER CBC WITH DIFFERENTIAL Routine 12/06/2005 4:35 PM BILLER TSH Routine 12/06/2005 4:35 PM BILLER BASIC METABOLIC PANEL Routine 12/06/2005 4:35 PM BILLER documented in this encounter Results * (ABNORMAL) CBC WITH DIFFERENTIAL (12/06/2005 4:35 PM BILLER) NEUTROPHILS 64 45 - 70 % INTERFAC E SYSTEM LYMPHOCYTES 30 16 - 45 % INTERFAC E SYSTEM MONOCYTES 4 3 - 13 % INTERFACE SYSTEM EOSINOPHILS 1 0 - 7 % INTERFAC E SYSTEM BASOPHILS 0 0 - 2 % INTERFACE SYSTEM NEUTROPHIL ABSOLUTE 8.37(H) 1.90 - 7.00 K/uL INTERFACE SYSTEM LYMPHOCYTE ABSOLUTE 3.96 0.70 - 4.50 K/uL INTERFACE SYSTEM MONOCYTE ABSOLUTE 0.58 0.10 - 1.30 K/uL INTERFACE SYSTEM EOSINOPHIL ABSOLUTE 0.14 0.00 - 0.70 K/uL INTERFACE SYSTEM BASOPHILS ABSOLUTE 0.02 0.00 - 0.20 K/uL INTERFACE SYSTEM 12/06/2005 4:35 PM BILLER Monty Cervantes MD HEMATOLOGY ORDERABLES Final Result Performing Organization Address [facility] Phone Number INTERFACE SYSTEM Refer to clinic/hospital department * (ABNORMAL) CBC WITH DIFFERENTIAL (12/06/2005 4:35 PM BILLER) WBC 13.1(H) 4.0 - 9.8 K/uL INTERFACE SYSTEM RBC 4.31 3.90 - 4.90 M/uL INTERFACE SYSTEM HEMOGLOBIN 13.3 11.8 - 14.8 g/dL INTERFACE SYSTEM HEMATOCRIT 38.6 35.5 - 44.0 % INTERFACE SYSTEM MCV 89.6 82.0 - 99.0 fL INTERFACE SYSTEM MCH 30.9 27.2 - 32.6 pg INTERFACE SYSTEM MCHC 34.5 31.5 - 35.5 % INTERFACE SYSTEM RDW 13.2 11.5 - 14.5 % INTERFACE SYSTEM RDW-STDEV 43.6 37.1 - 48.7 fL INTERFACE SYSTEM PLATELETS 299 140 - 350 K/uL INTERFACE SYSTEM MPV 9.9 9.3 - 12.4 fL INTERFACE SYSTEM 12/06/2005 4:35 PM BILLER Monty Cervantes MD HEMATOLOGY ORDERABLES Final Result Performing Organization Address [facility] Phone Number INTERFACE SYSTEM Refer to clinic/hospital department * TSH (12/06/2005 4:35 PM BILLER) TSH 1.24 0.27 - 4.20 uU/mL INTERFACE SYSTEM 12/06/2005 4:35 PM BILLER Monty Cervantes MD CHEMISTRY ORDERABLES Final Result Performing Organization Address [facility] Phone Number INTERFACE SYSTEM Refer to clinic/hospital department * BASIC METABOLIC PANEL (12/06/2005 4:35 PM BILLER) GLUCOSE 79 65 - 109 mg/dL INTERFACE SYSTEM CREATININE 0.7 0.4 - 1.2 mg/dL INTERFACE SYSTEM CALCIUM 9.3 8.6 - 10.2 mg/dL INTERFACE SYSTEM BUN 9 6 - 20 mg/dL INTERFACE SYSTEM SODIUM 139 135 - 145 mmol/L INTERFACE SYSTEM POTASSIUM 3.5 3.5 - 4.9 mmol/L INTERFACE SYSTEM CHLORIDE 101 96 - 108 mmol/L INTERFACE SYSTEM CO2 26 22 - 30 mmol/L INTERFACE SYSTEM 12/06/2005 4:35 PM BILLER Monty Cervantes MD CHEMISTRY ORDERABLES Final Result INTERFACE SYSTEM Refer to clinic/hospital department documented in this encounter Visit Diagnoses Diagnosis Other malaise and fatigue- Primary documented in this encounter Care Teams Systems Coordinator Relationship Specialty Start Date End Date Monty Cervantes MD [address] [place] [address] PCP - General 12/06/05 documented as of this encounter
--- OUTSIDE RECORDS SUMMARY | 2025-02-09 10:41 | XMS_ITS | Encounter Summary ---
Author Organization [facility] Address [address] [place] [address] Care Team Providers Care Credit Negotiator Name Role Phone Monty Cervantes MD Primary Care Provider Encounter Details Date Type Department Care Team (Late st Contact Info) Description 08/10/2007 Outpatient Historical 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 Gender Identity Not on file Sexual Orientation Not on file documented as of this encounter Last Filed Vital Signs Vital Sign Reading Time Taken Comments Blood Pressure 110/80 08/10/2007 11:45 AM CDT Pulse 74 08/10/2007 11:45 AM CDT Temperature - - Respiratory Rate 12 08/10/2007 11:45 AM CDT Oxygen Saturation - - Inhaled Oxygen Concentration - - Weight 59 kg (130 lb) 08/10/2007 11:45 AM CDT Height - - Body Mass Index 23.03 06/27/2005 1:45 PM CDT documented in this encounter Plan of Treatment Upcoming Encounters Date Type Department Care Team (Late st Contact Info) Description 02/17/2025 9:30 AM CDT Office Visit [facility] Internal Medicine Medical [place] A [place] [address] [address] Monty Cervantes MD [address] [facility] [address] [place], [place] [phone] 02/23/2025 8:00 AM CDT Office Visit [facility] Heart and Vascular At [facility] [address] [facility] [address] [place] [address] Monty Cervantes MD [address] [facility] [address] [place] [address] Austin Ackerman MD [address] [facility] [address] [place], [place] [phone] 08/22/2025 11:45 AM CDT Office Visit [facility] Internal Medicine [facility] A [facility] [address] [facility] [address] [address] Monty Cervantes MD [address] [facility] [address] [place], [place] [phone] documented as of this encounter Visit Diagnoses Not on filedocumented in this encounter Care Teams Credit Negotiator Relationship Specialty Start Date End Date Monty Cervantes MD [address] [facility] [address] [place], [place] [phone] PCP - General 12/06/05 documented as of this encounter
--- OUTSIDE RECORDS SUMMARY | 2025-02-09 10:41 | XMS_ITS | Encounter Summary ---
Author Organization [facility] Address [address] [place] [address] Care Team Providers Care Sld Inclusion Teacher Name Role Phone Monty Cervantes MD Primary Care Provider Encounter Details Date Type Department Care Team (Latest Contact Info) Description 03/20/2000 Outpatient Historical [facility] Jennifer Lemus MD [address] [place] [address] Triplet , antepartum (Primary Dx) Social History Tobacco Use Types Packs/Day Years Used Date Smoking Tobacco: Never Assessed Comments Unknown Sex and Gender Information Value Date Recorded Sex Assigned at Not on file Legal Sex Female 2:38 AM STATISTICAL SECRETARY Gender Identity Not on file Sexual Orientation Not on file documented as of this encounter Plan of Treatment Upcoming Encounters Date Type Department Care Team (Late st Contact Info) Description 02/17/2025 9:30 AM CDT Office Visit [facility] Internal Medicine Medical [place] A [facility] [address] [facility] [address] [place] [address] Monty Cervantes MD [address] [facility] [address] [place] [address] 02/23/2025 8:00 AM CDT Office Visit [facility] Heart and Vascular At [facility] [address] [facility] [address] [place] [address] Monty Cervantes MD [address] [facility] [address] [address] Austin Ackerman MD [address] [facility] [address] [place] [address] 08/22/2025 11:45 AM CDT Office Visit [facility] Internal Medicine Medical [place] A [facility] [address] [facility] [address] [address] Monty Cervantes MD [address] [facility] [address] [place] [address] documented as of this encounter Visit Diagnoses Diagnosis Triplet , antepartum- Primary documented in this encounter Care Teams Sld Inclusion Teacher Relationship Specialty Start Date End Date Monty Cervantes MD [address] [facility] [address] [address] PCP - General 12/06/05 documented as of this encounter
--- OUTSIDE RECORDS SUMMARY | 2025-02-09 10:41 | XMS_ITS | Encounter Summary ---
Author Organization [facility] Address 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 [facility] [address] [address] 02/23/2025 8:00 AM CDT Office Visit [facility] Heart and Vascular At [facility] [address] [facility] [address] [place] [address] Monty Cervantes MD [address] [facility] [address] [address] Austin Ackerman MD [address] [facility] [address] [place], [place] [phone] 08/22/2025 11:45 AM CDT Office Visit [facility] Internal Medicine Medical [place] A [facility] [address] [facility] [address] [address] Monty Cervantes MD [address] [facility] [address] [place], [place] [phone] documented as of this encounter Visit Diagnoses Diagnosis Obstruction by bony pelvis during labor and delivery, delivered(660.11)- Primary Obstruction by bony pelvis during labor and delivery, delivered documented in this encounter Care Teams Testing Tech Relationship Specialty Start Date End Date Monty Cervantes MD [address] [place] [address] [address] [place], [place] [phone] PCP - General 12/06/05 documented as of this encounter
--- OUTSIDE RECORDS SUMMARY | 2025-02-09 10:41 | XMS_ITS | Clinical Summary ---
Author Organization [facility] Address [address] [place] [address] Care Team Providers Care Medical Transcription Radiology Name Role Phone Unavailable Primary Care Provider Unavailabl e Social History Tobacco Use Types Packs/Day Years Used Date Smoking Tobacco: Never Assessed Comments Unknown Sex and Gender Information Value Date Recorded Sex Assigned at Not on file Legal Sex Female 3:40 PM CDT Gender Identity Not on file Sexual Orientation Not on file Plan of Treatment Health Maintenance Due Date Last Done Comments Cervical Cancer Screening Pa p Smear (Age 30 to 64) Every 3 Years 1973 Colorectal Cancer Screening Colonoscopy (10 Years) 1973 Annual Physical 1976 Hepatitis C 1991 DTaP, Tdap and Td Vaccines ( 1 - Tdap) 1992 Hepatitis B Vaccines (1 of 3 - 19+ 3-dose series) 1992 Cervical Cancer Screening Pa p with HPV Testing (Age 30 to 64) Every 5 Years 2003 Cervical Cancer Screening with HPV 2003 Mammogram Screening 2013 Zoster Vaccines (1 of 2) 2023 COVID-19 Vaccine (2023-2 5 season) 2024 Influenza Adult (#1) 2024 Meningococcal B Vaccine Aged Out No l onger eligible based on patient's age to complete this topic Meningococcal Vaccine Aged Out No elva mansoor eligible based on patient's age to complete this topic Pneumococcal Vaccine: Pediat rics (0 to 5 Years) and At-Risk Patients (6 to 64 Years) Aged Out No longer eligible b ased on patient's age to complete this topic RSV Immunizations Under 20 Months Aged Out No longer eligible based on patient's age to complete this topic
--- OUTSIDE RECORDS SUMMARY | 2025-02-09 10:41 | XMS_ITS | Encounter Summary ---
Author Organization [facility] Address 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 Gender Identity Not on file Sexual Orientation Not on file documented as of this encounter Plan of Treatment Upcoming Encounters Date Type Department Care Team (Late st Contact Info) Description 02/17/2025 9:30 AM CDT Office Visit [facility] Internal Medicine Medical [place] A [facility] [address] [facility] [address] [place] [address] Monty Cervantes MD [address] [place] [address] [address] [place] [address] 02/23/2025 8:00 AM CDT Office Visit [facility] Heart and Vascular At [facility] [address] [facility] [address] [place] [address] Monty Cervantes MD [address] [place] [address] [address] [place] [address] Austin Ackerman MD [address] [facility] [address] [place], [place] [id number] 08/22/2025 11:45 AM CDT Office Visit [facility] Internal Medicine Medical [place] A [facility] [address] [facility] [address] [address] Monty Cervantes MD [address] [facility] [address] [place], [place] [phone] documented as of this encounter Visit Diagnoses Not on filedocumented in this encounter Care Teams Poultry Offal Icer Relationship Specialty Start Date End Date Monty Cervantes MD [address] [facility] [address] [place], [place] [phone] PCP - General 12/06/05 documented as of this encounter
--- OUTSIDE RECORDS SUMMARY | 2025-02-09 10:41 | XMS_ITS ---
Author Organization [facility] Address [address] [place] [address] Phone Care Team Providers Care Acid Mixer Name Role Phone Monty Cervantes MD Primary Care Provider Active Problems Problem Noted Date Diagnosed Date [...] hypercholesterolemia 06/27/2005 Dysmetabolic syndrome X 06/27/2005 Anxiety Current Treatment and Therapy Plans No current plan information found. Past Treatment and Therapy Plans No past plan information found. Lifetime Dose Tracking * Chemical Lifetime Dose Automatic Entry Manual Entr y Effective Dose 17.63 mSv 17.63 mSv 0 mSv Total DLP 1,902.4 DLP 1,902.4 DLP 0 DLP CTDIvol Max 83.2 mGy 83.2 mGy 0 mGy CTDIvol Min 72 mGy 72 mGy 0 mGy Resolved Problems Problem Noted Date Diagnosed Date [...] 016 Polycystic ovaries 2007 1 Overview (02/28/2008): [id number] Routine gynecological examination 08/08/2006 03/07/2010 Screening for diabetes mellitus 08/08/2006 01/25/2011 Encounter for long-term (cur rent) use of other medications 08/08/2006 03/07/2010 Other malaise and fatigue 12/06/2005 Other symptoms involving res piratory system and chest 12/06/2005 01/25/2011 Kidney stone 03/07/2010 Polycystic disease, ovaries 03/07/2010 Tick bite 01/03/2020
--- OUTSIDE RECORDS SUMMARY | 2025-02-09 10:41 | XMS_ITS | Encounter Summary ---
Author Organization [facility] Address 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 Gender Identity Not on file Sexual Orientation Not on file documented as of this encounter Plan of Treatment Upcoming Encounters Date Type Department Care Team (Late st Contact Info) Description 02/17/2025 9:30 AM CDT Office Visit [facility] Internal Medicine Medical [place] [facility] [address] [facility] [address] [place] [address] Monty Cervantes MD [address] [facility] [address] [place] [address] 02/23/2025 8:00 AM CDT Office Visit [facility] Heart and Vascular At [facility] [address] [facility] [address] [place] [address] Monty Cervantes MD [address] [facility] [address] [address] Austin Ackerman MD [address] [facility] [address] [place] [address] 08/22/2025 11:45 AM CDT Office Visit [facility] Internal Medicine Medical [place] [facility] [address] [facility] [address] [address] Monty Cervantes MD [address] [facility] [address] [place] [address] documented as of this encounter Visit Diagnoses Diagnosis Triplet , antepartum- Primary documented in this encounter Care Teams Shank Stitcher Relationship Specialty Start Date End Date Monty Cervantes MD [address] [facility] [address] [address] PCP - General 12/06/05 documented as of this encounter
--- OUTSIDE RECORDS SUMMARY | 2025-02-09 10:41 | XMS_ITS | Clinical Summary ---
Author Organization [facility] Address [address] [place] [address] Care Team Providers Care High School Coach Name Role Phone Monty Cervantes MD Primary Care Provider [phone]- [phone] Allergies Active Allergy Reactions Criticality Noted Date Comments Gabapentin Anaphylaxis,Unknown High 05/23/2011 Close throat Morphine Itching Reaction: ITCHING Nitrofurantoin Anaphylaxis Reaction: ANAPHYLAXIS Nitrofurantoin Monohyd/M-Cryst Swelling High 12/20/2008 Sulfa (Sulfonamide Antibiotics) Angioedema Reaction: FACIAL SWELLING, Medications metFORMIN XR (GLUCOPHAGE XR) 500 mg 24 hr tablet Take 500 mg by mouth daily 1 Active omeprazole (PriLOSEC) 20 mg capsule Take 20 mg by mouth daily 1 Active propranoloL (INDERAL) 20 mg tablet Take 20 mg by mouth 2 (two) times a day 1 Active escitalopram (LEXAPRO) 20 mg tablet Take 20 mg by mouth daily 1 Active atorvastatin (LIPITOR) 40 mg tablet Take 40 mg by mouth daily 1 Active aspirin 81 mg enteric coated tablet Take 81 mg by mouth daily 1 Active HYDROcodone-valentine taminophen (NORCO) 5-325 mg per tablet TAKE 1 TABLET BY MOUTH 3 TIMES DAILY NEEDED FOR PAIN, MODERATE. FOR SHOULDER AND HIP PAIN 1 Active azithromycin (ZITHROMAX) 250 mg tablet Take 2 tabs (500 mg) by mouth today, than 1 tab (250 mg) daily for 4 days. 6 tablet 5 01/26/20 25 methylPREDNISol one (MEDROL DOSEPACK) 4 mg Dosepack Take as directed on package. 21 tablet 5 01/27/20 25 Active Problems No known active problems Encounters Date Type Department Care Team Description 01/20/2025 10:30 AM MANAGER OB Telemedicine [facility] Medical Group Virtual Care [address] [place] [address] Paula Moody NP Acute non-recurrent sinusitis, unspecified location (Primary Dx) from Last 3 Months Medical History Medical History Date Comments Encounter for other orthopedic aftercare Orthopedic aftercare - (Added by TW Conv) Social History Tobacco Use Types Packs/Day Years Used Date Smoking Tobacco: Every Day Smokeless Tobacco: Never Personal Safety Answer Date Recorded Getting School Help Needed Not on file 01/11 Comments Unknown Sex and Gender Information Value Date Recorded Sex Assigned at Not on file Legal Sex Female 12:40 AM MANAGER OB Gender Identity Not on file Sexual Orientation Not on file Obstetrics History Last Filed Vital Signs Vital Sign Reading Time Taken Comments Blood Pressure 110/62 01/22/2012 10:00 AM MANAGER OB Pulse 81 01/22/2012 10:00 AM MANAGER OB Temperature - - Respiratory Rate - - Oxygen Saturation 95% 01/22/2012 6:49 AM MANAGER OB Inhaled Oxygen Concentration - - Weight 72.6 kg (160 lb) 05/28/2021 3:42 PM CDT Height 160 cm (5' 3 ) 05/28/2021 3:42 PM CDT Body Mass Index 28.34 05/28/2021 3:42 PM CDT Plan of Treatment Health Maintenance Due Date Last Done Comments Cervical Cancer Screening 1973 Colon Cancer Screening-Colonoscopy 1973 Depression Screening 1973 Hepatitis C Screening 1973 Hepatitis B Screening 1991 Regular Well Visit/Exam 18-64 1991 Pneumococcal vaccine <65 (1 of 2 - PCV) 1992 DTaP/Tdap/Td Vaccine (1 - Tdap) 01/23/2009 9 Zoster Vaccine (1 of 2) 2023 Influenza Vaccine (#1) 2024 0, 09/02/2019, 08/17/2018, Additional history exists Breast Cancer Screening-Mammogram 09/23/2025 09/23/2024, 09/23/2024, 03/14/2023, Additional history exists Insurance [facility] PLUS Care Teams High School Coach Relationship Specialty Start Date End Date Monty Cervantes MD PCP - General 07/07/17
--- OUTSIDE RECORDS SUMMARY | 2025-02-09 10:41 | XMS_ITS | Encounter Summary ---
Author Organization [facility] Address [address] [place] [address] Care Team Providers Care Veneer Jointer Operator Name Role Phone Monty Cervantes MD Primary Care Provider Encounter Details Date Type Department Care Team (Late st Contact Info) Description 06/10/2003 Outpatient Historical [facility] Internal Medicine [facility] [address] [facility] [address] [facility] [place] [address] Monty Cervantes MD [address] [place] [address] Social History Tobacco Use Types Packs/Day Years Used Date Smoking Tobacco: Never Assessed Comments Unknown Sex and Gender Information Value Date Recorded Sex Assigned at Not on file 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 Gender Identity Not on file Sexual Orientation Not on file documented as of this encounter Plan of Treatment Upcoming Encounters Date Type Department Care Team (Late st Contact Info) Description 02/17/2025 9:30 AM CDT Office Visit [facility] Internal Medicine [facility] [address] [facility] [address] [place] [address] Monty Cervantes MD [address] [place] [address] [address] [place] [address] 02/23/2025 8:00 AM CDT Office Visit [facility] Heart and Vascular At [facility] [address] [facility] [address] [place] [address] Monty Cervantes MD [address] [facility] [address] [address] Austin Ackerman MD [address] [facility] [address] [place], [place] [id number] 08/22/2025 11:45 AM CDT Office Visit [facility] Internal Medicine Medical [place] A [facility] [address] [facility] [address] [address] Monty Cervantes MD [address] [facility] [address] [place], [place] [phone] documented as of this encounter Visit Diagnoses Not on filedocumented in this encounter Care Teams Veneer Jointer Operator Relationship Specialty Start Date End Date Monty Cervantes MD [address] [facility] [address] [place], [place] [phone] PCP - General 12/06/05 documented as of this encounter
--- OUTSIDE RECORDS SUMMARY | 2025-02-09 10:41 | XMS_ITS | Encounter Summary ---
Author Organization [facility] Address [address] [place] [address] Care Team Providers Care Network Systems Engineer Name Role Phone Monty Cervantes MD Primary Care Provider Encounter Details Date Type Department Care Team (Latest Contact Info) Description 07/30/2000 Outpatient Historical [facility] Lilia Washburn Sue D, MD [address] [place] [address] Threatened premature labor, antepartum(644.03) (Primary Dx) Social History Tobacco Use Types Packs/Day Years Used Date Smoking Tobacco: Never Assessed Comments Unknown Sex and Gender Information Value Date Recorded Sex Assigned at Not on file Legal Sex Female 2:38 AM QUALITY TESTER Gender Identity Not on file Sexual Orientation Not on file documented as of this encounter Plan of Treatment Upcoming Encounters Date Type Department Care Team (Late st Contact Info) Description 02/17/2025 9:30 AM CDT Office Visit [facility] Internal Medicine Medical [place] [facility] [address] [facility] [address] [address] Monty Cervantes MD [address] [facility] [address] [place] [address] 02/23/2025 8:00 AM CDT Office Visit [facility] Heart and Vascular At [facility] [address] [facility] [address] [place] [address] Monty Cervantes MD [address] [facility] [address] [address] Austin Ackerman MD [address] [facility] [address] [place], [place] [id number] 08/22/2025 11:45 AM CDT Office Visit [facility] Internal Medicine Medical [place] A [facility] [address] [facility] [address] [place] [address] Monty Cervantes MD [address] [facility] [address] [place], [place] [id number] documented as of this encounter Visit Diagnoses Diagnosis Threatened premature labor, antepartum(644.03)- Primary Threatened premature labor, antepartum documented in this encounter Care Teams Network Systems Engineer Relationship Specialty Start Date End Date Monty Cervantes MD [address] [place] [address] [address] [place], [place] [id number] PCP - General 12/06/05 documented as of this encounter
--- OUTSIDE RECORDS SUMMARY | 2025-02-09 10:41 | XMS_ITS | Encounter Summary ---
Author Organization [facility] Address 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 Gender Identity Not on file Sexual Orientation Not on file documented as of this encounter Plan of Treatment Upcoming Encounters Date Type Department Care Team (Late st Contact Info) Description 02/17/2025 9:30 AM CDT Office Visit [facility] Internal Medicine Medical [place] [facility] [address] [facility] [address] [place] [address] Monty Cervantes MD [address] [place] [address] [address] [place] [address] 02/23/2025 8:00 AM CDT Office Visit [facility] Heart and Vascular At [facility] [address] [facility] [address] [place] [phone] Monty Cervantes MD [address] [place] [address] [address] [place] [address] Austin Ackerman MD [address] [facility] [address] [place], [place] [id number] 08/22/2025 11:45 AM CDT Office Visit [facility] Internal Medicine Medical [place] A [facility] [address] [facility] [address] [address] Monty Cervantes MD [address] [facility] [address] [place], [place] [id number] documented as of this encounter Visit Diagnoses Not on filedocumented in this encounter Care Teams Neonatal Social Worker Relationship Specialty Start Date End Date Monty Cervantes MD [address] [facility] [address] [place], [place] [phone] PCP - General 12/06/05 documented as of this encounter
--- OUTSIDE RECORDS SUMMARY | 2025-02-09 10:41 | XMS_ITS | Encounter Summary ---
Author Organization [facility] Address 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 Gender Identity Not on file Sexual Orientation Not on file documented as of this encounter Plan of Treatment Upcoming Encounters Date Type Department Care Team (Late st Contact Info) Description 02/17/2025 9:30 AM CDT Office Visit [facility] Internal Medicine Medical [place] [facility] [address] [facility] [address] [place] [address] Monty Cervantes MD [address] [place] [address] [address] [place] [address] 02/23/2025 8:00 AM CDT Office Visit [facility] Heart and Vascular At [facility] [address] [facility] [address] [place] [address] Monty Cervantes MD [address] [place] [address] [address] [place] [address] Austin Ackerman MD [address] [facility] [address] [place], [place] [id number] 08/22/2025 11:45 AM CDT Office Visit [facility] Internal Medicine Medical [place] A [facility] [address] [facility] [address] [address] Monty Cervantes MD [address] [facility] [address] [place], [place] [id number] documented as of this encounter Visit Diagnoses Not on filedocumented in this encounter Care Teams Home And Family Living Professor Relationship Specialty Start Date End Date Monty Cervantes MD [address] [facility] [address] [place], [place] [phone] PCP - General 12/06/05 documented as of this encounter
--- OUTSIDE RECORDS SUMMARY | 2025-02-09 10:41 | XMS_ITS | Encounter Summary ---
Author Organization [facility] Address [address] [place] [address] Care Team Providers Care Associate Doctor Name Role Phone Monty Cervantes MD Primary Care Provider Encounter Details Date Type Department Care Team (Late st Contact Info) Description 05/29/2004 Outpatient Historical 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 Internal Medicine [facility] [address] [facility] [address] [place] [address] Monty Cervantes MD [address] [place] [address] [address] [place] [address] 02/23/2025 8:00 AM CDT Office Visit [facility] Heart and Vascular At [facility] [address] [facility] [address] [place] [address] Monty Cervantes MD [address] [facility] [address] [address] Austin Ackerman MD [address] [facility] [address] [place], [place] [id number] 08/22/2025 11:45 AM CDT Office Visit [facility] Internal Medicine Medical [place] [facility] [address] [facility] [address] [address] Monty Cervantes MD [address] [facility] [address] [place], [place] [phone] documented as of this encounter Visit Diagnoses Not on filedocumented in this encounter Care Teams Associate Doctor Relationship Specialty Start Date End Date Monty Cervantes MD [address] [facility] [address] [place], [place] [phone] PCP - General 12/06/05 documented as of this encounter
--- OUTSIDE RECORDS SUMMARY | 2025-02-09 10:41 | XMS_ITS | Referral Summary ---
Author Organization [facility] Address [address] [place] [address] Care Team Providers Care Key Filer Name Role Phone Monty Cervantes MD Primary Care Provider [phone]- [phone] Encounters Date Type Department Care Team Description 01/20/2025 10:30 AM BEHAVIORAL HEALTH CLINICIAN Telemedicine [facility] Medical Group Virtual Care [address] [place] [address] Paula Moody NP Acute non-recurrent sinusitis, unspecified location (Primary Dx) from Last 3 Months Allergies Active Allergy Reactions Criticality Noted Date [...] 25 Active Problems No known active problems Social History Tobacco Use Types Packs/Day Years Used Date Smoking Tobacco: Every Day Smokeless Tobacco: Never Personal Safety Answer Date Recorded Getting School Help Needed Not on file 01/11 Comments Unknown Sex and Gender Information Value Date Recorded Sex Assigned at Not on file Legal Sex Female 12:40 AM BEHAVIORAL HEALTH CLINICIAN Gender Identity Not on file Sexual Orientation Not on file Last Filed Vital Signs Vital Sign Reading Time Taken Comments Blood Pressure 110/62 01/22/2012 10:00 AM BEHAVIORAL HEALTH CLINICIAN Pulse 81 01/22/2012 10:00 AM BEHAVIORAL HEALTH CLINICIAN Temperature - - Respiratory Rate - - Oxygen Saturation 95% 01/22/2012 6:49 AM BEHAVIORAL HEALTH CLINICIAN Inhaled Oxygen Concentration - - Weight 72.6 kg (160 lb) 05/28/2021 3:42 PM CDT Height 160 cm (5' 3 ) 05/28/2021 3:42 PM CDT Body Mass Index 28.34 05/28/2021 3:42 PM CDT Plan of Treatment Not on file Insurance [facility]/PPO Address: [address] [address] [place] [address] [facility] HMO/PPO Address: [address] [address] [place] [address] [facility] CHOICE PLUS [facility] HMO/PPO Address: [address] [address] [place] [address] Care Teams Key Filer Relationship Specialty Start Date End Date Monty Cervantes MD PCP - General 07/07/17
--- OUTSIDE RECORDS SUMMARY | 2025-02-09 10:41 | XMS_ITS | Encounter Summary ---
Author Organization [facility] Address [address] [place] [address] Care Team Providers Care Physician Assistant Psychiatry Name Role Phone Monty Cervantes MD Primary Care Provider Encounter Details Date Type Department Care Team (Latest Contact Info) Description 05/09/2000 Outpatient Historical [facility],NON-PATIENT Jennifer Lemus MD [address] [place] [address] Screening for malignant neoplasm of the cervix (Primary Dx) Social History Tobacco Use Types Packs/Day Years Used Date Smoking Tobacco: Never Assessed Comments Unknown Sex and Gender Information Value Date Recorded Sex Assigned at Not on file Legal Sex Female 2:38 AM SALES DEVELOPMENT SPECIALIST Gender Identity Not on file Sexual Orientation Not on file documented as of this encounter Plan of Treatment Upcoming Encounters Date Type Department Care Team (Late st Contact Info) Description 02/17/2025 9:30 AM CDT Office Visit [facility] Internal Medicine Medical [place] [facility] [address] [facility] [address] [address] Monty Cervantes MD [address] [facility] [address] [place] [address] 02/23/2025 8:00 AM CDT Office Visit [facility] Heart and Vascular At [facility] [address] [facility] [address] [place] [address] Monty Cervantes MD [address] [facility] [address] [address] Austin Ackerman MD [address] [facility] [address] [place], [place] [id number] 08/22/2025 11:45 AM CDT Office Visit [facility] Internal Medicine Medical [place] [facility] [address] [facility] [address] [address] Monty Cervantes MD [address] [facility] [address] [place], [place] [phone] documented as of this encounter Visit Diagnoses Diagnosis Screening for malignant neoplasm of the cervix- Primary documented in this encounter Care Teams Physician Assistant Psychiatry Relationship Specialty Start Date End Date Monty Cervantes MD [address] [facility] [address] [place], [place] [phone] PCP - General 12/06/05 documented as of this encounter
--- OUTSIDE RECORDS SUMMARY | 2025-02-09 10:41 | XMS_ITS | Encounter Summary ---
Author Organization [facility] Address [address] [place] [address] Care Team Providers Care Senior Radiation Therapist Name Role Phone Monty Cervantes MD Primary Care Provider [phone] Encounter Details Date Type Department Care Team (Late st Contact Info) Description 08/10/2007 Orders Only [facility] Internal Medicine Medical [place] A [facility] [address] [facility] [address] [place] [address] Monty Cervantes MD [address] [facility] [address] [place] [address] Social History Tobacco Use Types Packs/Day Years Used Date Smoking Tobacco: Never Assessed Comments Unknown Sex and Gender Information Value Date Recorded Sex Assigned at Not on file Legal Sex Female 2:38 AM BOAT OAR MAKER Gender Identity Not on file Sexual Orientation Not on file documented as of this encounter Progress Notes * Monty Cervantes MD - 04/01/2008 6:16 PM CDT BLOOD PRESSURE: 110/80 Left Arm Sitting PULSE: 74 Left Radial, Regular RESPIRATIONS: 12 WEIGHT: 130lbs NURSE NAME: Marie Castillo A ALLERGIES: No known drug allergies. TOBACCO USE Patient is a current tobacco user. MEDICATIONS: RN/MA reviewed medications. CHIEF COMPLAINT Here for follow up evaluation of hypercholesterolemia. HISTORY: HISTORY: 272.0-PURE HYPERCHOLESTEROLEMIA The patient has lost weight. The patient is compliant with the low saturated fat diet. The patient`s exercise has increased. The patient is tolerating the medications.The patient's most recent LDL is at goal. CURRENT MEDICATION LIST: EFFEXOR XR ORAL CAPSULE 24 HR 150 MG, 1 Every Day ESTRATEST H.S. ORAL TABLET 0.625-1.25 MG, 1 Every Day At Bedtime LIPITOR ORAL TABLET 20 MG, 1po qd ROS: GENERAL: HAS LOST WEIGHT. Went away quickly after DIVYA-BSO for polycystic ovaries. ENT: No hearing loss, epistaxis, hoarseness or dysphagia. No sinus congestion.. ENDOCRINE: No heat or cold intolerance, no excessive thirst.. CARDIAC: No chest pain, palpitations, orthopnea, dyspnea on exertion, or paroxysmal nocturnal dyspnea.. RESPIRATORY: No dyspnea, cough, hemoptysis or wheezing.. : No frequency, urgency, hematuria or dysuria.. GI: No abdominal pain, nausea, vomiting, diarrhea, constipation, melena, or hematochezia.. PHYSICAL EXAMINATION: CONSTITUTIONAL: GENERAL APPEARANCE: Healthy appearing patient in no distress. EARS, NOSE, MOUTH AND THROAT: EARS: Tympanic membranes shiny without retraction. Canals unremarkable. Hearing grossly normal. ORAL: Inspection of gums, lips, palate, and teeth normal. No scars, lesions, or masses. Oral mucosaunremarkable with non-inflamed posterior pharynx. NECK/THYROID: Trachea midline. No thyroid enlargement, tenderness, or mass. No supraclavicular or cervical adenopathy. RESPIRATORY: Clear to auscultation and percussion. Normal respiratory effort. CARDIOVASCULAR: CARDIAC: Regular rhythm. No murmurs, rubs, or gallops. ARTERIAL: No aortic bruits. EDEMA/VARICOSITIES OF EXTREMITIES: No edema or varicosities. GASTROINTESTINAL: ABDOMEN: Soft, non-tender, without masses. Bowel sounds active. LIVER/SPLEEN/KIDNEY: No hepatosplenomegaly, tenderness or nodularity. Kidneys not palpable. ASSESSMENT/PLAN: 272.0-PURE HYPERCHOLESTEROLEMIA ASSESSMENT: Will reduce medication dosage. A low cholesterol diet was encouraged. Regular aerobic exercise was encouraged. The patient's most recent labs reviewed. MEDICATIONS: LIPITOR ORAL TABLET 20 MG, 1po qd, 90 Dispensed, 3 Fills, status: DISCONTINUED, 08/10/2007. LIPITOR ORAL TABLET 10 MG, 1 Every Day, 90 Dispensed, 3 Fills, status: NEW PRESCRIPTION, 08/10/2007. LAB ORDERS: Order number: [id number] Test Ordered: LIPID PANEL 1078 CLINICAL GUIDELINES: Cardiovascular clinical guidelines reviewed. 305.1-TOBACCO ABUSE MEDICATIONS: CHANTIX STARTING MONTH DENA ORAL MISCELLANEOUS 0.5 MG X 11 & 1 MG X 42, as directed, 1 Dispensed, 11 Fills, status: NEW PRESCRIPTION, 08/10/2007. CHANTIX CONTINUING MONTH DENA ORAL TABLET 1 MG, as directed, 1 Dispensed, 11 Fills, status: NEW PRESCRIPTION, 08/10/2007. HEALTH MAINTENANCE: LAST TD: 2006 PREVENTIVE COUNSELING The patient was counseled regarding diet, regular sustained exercise for at least 30 minutes 3-4 times per week. RETURN VISIT : Patient instructed to return in 6 months. Electronically Signed by: Monty Cervantes MD on Thursday, August 16, 2007 documented in this encounter Plan of Treatment Upcoming Encounters Date Type Department Care Team (Late st Contact Info) Description 02/17/2025 9:30 AM CDT Office Visit [facility] Internal Medicine [facility] [address] [place] [phone] Monty Cervantes MD [address] [place] [address] 02/23/2025 8:00 AM CDT Office Visit [facility] Heart and Vascular At [place] [address] [facility] [address] [place] [address] Monty Cervantes MD [address] [place] [address] Austin Ackerman MD [facility] [address] [facility] [address] [place] [address] 08/22/2025 11:45 AM CDT Office Visit [facility] Internal Medicine [facility] [address] [facility] [address], [place] [address] Monty Cervantes MD [address] [facility] [address], [place] [address] documented as of this encounter Visit Diagnoses Not on filedocumented in this encounter Care Teams Senior Radiation Therapist Relationship Specialty Start Date End Date Monty Cervantes MD [address] [facility] [address] [address] PCP - General 12/06/05 documented as of this encounter
--- OUTSIDE RECORDS SUMMARY | 2025-02-09 10:41 | XMS_ITS | Encounter Summary ---
Author Organization [facility] Address [address] [place] [address] Care Team Providers Care Online Editor Name Role Phone Monty Cervantes MD Primary Care Provider Encounter Details Date Type Department Care Team (Late st Contact Info) Description 11/05/1999 Outpatient Historical [facility] MD Dang SHETTY Anthony, MD Social History Tobacco Use Types Packs/Day Years Used Date Smoking Tobacco: Never Assessed Comments Unknown Sex and Gender Information Value Date Recorded Sex Assigned at Not on file Legal Sex Female 2:38 AM TEXTILE SCREEN MAKER Gender Identity Not on file Sexual Orientation Not on file documented as of this encounter Plan of Treatment Upcoming Encounters Date Type Department Care Team (Late st Contact Info) Description 02/17/2025 9:30 AM CDT Office Visit [facility] Internal Medicine [place] [facility] [address] [facility] [address] [place] [address] Monty Cervantes MD [address] [place] [address] [address] [place] [address] 02/23/2025 8:00 AM CDT Office Visit [facility] Heart and Vascular At [facility] [address] [facility] [address] [place] [phone] Monty Cervantes MD [address] [place] [address] [address] [place] [address] Austin Ackerman MD [address] [facility] [address] [place], [place] [phone] 08/22/2025 11:45 AM CDT Office Visit [facility] Internal Medicine [place] [facility] [address] [facility] [address] [address] Monty Cervantes MD [address] [facility] [address] [place], [place] [phone] documented as of this encounter Visit Diagnoses Not on filedocumented in this encounter Care Teams Online Editor Relationship Specialty Start Date End Date Monty Cervantes MD [address] [facility] [address] [place], [place] [phone] PCP - General 12/06/05 documented as of this encounter
--- OUTSIDE RECORDS SUMMARY | 2025-02-09 10:41 | XMS_ITS | Encounter Summary ---
Author Organization [facility] Address [address] [place] [address] Care Team Providers Care Furnace Maintenance Name Role Phone Monty Cervantes MD Primary Care Provider Encounter Details Date Type Department Care Team (Late st Contact Info) Description 08/08/2006 Outpatient Historical [facility] 189 [address] [facility] [address] [place] [address] Monty Cervantes MD [address] [place] [address] [address] [place] [address] Social History Tobacco Use Types Packs/Day Years Used Date Smoking Tobacco: Never Assessed Comments Unknown Sex and Gender Information Value Date Recorded Sex Assigned at Not on file Legal Sex Female 2:38 AM OUTPATIENT CASE MANAGER Gender Identity Not on file Sexual Orientation Not on file documented as of this encounter Last Filed Vital Signs Vital Sign Reading Time Taken Comments Blood Pressure 110/86 08/08/2006 11:45 AM CDT Pulse 74 08/08/2006 11:45 AM CDT Temperature - - Respiratory Rate 12 08/08/2006 11:45 AM CDT Oxygen Saturation - - Inhaled Oxygen Concentration - - Weight 70.3 kg (155 lb) 08/08/2006 11:45 AM CDT Height - - Body Mass Index 27.46 06/27/2005 1:45 PM CDT documented in this encounter Plan of Treatment Upcoming Encounters Date Type Department Care Team (Late st Contact Info) Description 02/17/2025 9:30 AM CDT Office Visit [facility] Internal Medicine [facility] A [facility] [address] [facility] [address] [address] Monty Cervantes MD [address] [facility] [address] [place], [place] [phone] 02/23/2025 8:00 AM CDT Office Visit [facility] Heart and Vascular At [facility] [address] [facility] [address] [place] [phone] Monty Cervantes MD [address] [facility] [address] [place] [address] Austin Ackerman MD [address] [facility] [address] [place], [place] [phone] 08/22/2025 11:45 AM CDT Office Visit [facility] Internal Medicine [facility] A [facility] [address] [facility] [address] [address] Monty Cervantes MD [address] [facility] [address] [place], [place] [phone] documented as of this encounter Visit Diagnoses Not on filedocumented in this encounter Care Teams Furnace Maintenance Relationship Specialty Start Date End Date Monty Cervantes MD [address] [facility] [address] [place], [place] [id number] PCP - General 12/06/05 documented as of this encounter
--- OUTSIDE RECORDS SUMMARY | 2025-02-09 10:41 | XMS_ITS | Encounter Summary ---
Author Organization [facility] Address [address] [place] [address] Care Team Providers Care Blooming Mill Supervisor Name Role Phone Monty Cervantes MD Primary Care Provider Encounter Details Date Type Department Care Team (Late st Contact Info) Description 12/13/2024 Results Follow-Up [facility] Internal Medicine [facility] A [place] [address] [place] [address] Kia Angeles, PATRICA [address] [place] [address] [place] [address] CAROTID DOPPLER Social History Tobacco Use Types Packs/Day Years Used Date Smoking Tobacco: Every Day Cigarettes 0.5 20 Smokeless Tobacco: Never Alcohol Use Standard Drinks/Week Comments Never 0 (1 standard drink = 0.6 oz pur e alcohol) Comments No Sex and Gender Information Value Date Recorded Sex Assigned at Not on file Legal Sex Female 2:38 AM OFFICE PROFESSIONAL Gender Identity Not on file Sexual Orientation Not on file Occupation Industry Job Start Date Job End Date Not on file Not on file Not on file Not on file documented as of this encounter Plan of Treatment Upcoming Encounters Date Type Department Care Team (Late st Contact Info) Description 02/17/2025 9:30 AM CDT Office Visit [facility] Internal Medicine [facility] [address] [address] Monty Cervantes MD [address] [facility] [address] [place] [address] 02/23/2025 8:00 AM CDT Office Visit [facility] Heart and Vascular At [facility] [address] [facility] [address] [place] [address] Monty Cervantes MD [address] [facility] [address] [place] [address] Austin Ackerman MD [address] [facility] [address] [place], [place] [phone] 08/22/2025 11:45 AM CDT Office Visit [facility] Internal Medicine Medical [place] A [place] 189 [address] [facility] [address] [address] Monty Cervantes MD [address] [facility] [address] [place] [address] documented as of this encounter Visit Diagnoses Not on filedocumented in this encounter Care Teams Blooming Mill Supervisor Relationship Specialty Start Date End Date Monty Cervantes MD [address] [place] [address] [address] [place], [place] [phone] PCP - General 12/06/05 documented as of this encounter
--- OUTSIDE RECORDS SUMMARY | 2025-02-09 10:41 | XMS_ITS | Encounter Summary ---
Author Organization [facility] Address [address] [place] [address] Care Team Providers Care Burnishing Machine Operator Name Role Phone Monty Cervantes MD Primary Care Provider [phone] Encounter Details Date Type Department Care Team (Late st Contact Info) Description 04/19/2004 Outpatient Historical [facility] Internal Medicine [facility] [address] [facility] [address] [facility] [place] [address] Monty Cervantes MD [address] [place] [address] Social History Tobacco Use Types Packs/Day Years Used Date Smoking Tobacco: Never Assessed Comments Unknown Sex and Gender Information Value Date Recorded Sex Assigned at Not on file Legal Sex Female 2:38 AM REVIEW RN Gender Identity Not on file Sexual Orientation Not on file documented as of this encounter Plan of Treatment Upcoming Encounters Date Type Department Care Team (Late st Contact Info) Description 02/17/2025 9:30 AM CDT Office Visit [facility] Internal Medicine [facility] [address] [facility] [address] [place] [address] Monty Cervantes MD [address] [place] [address] [address] [place] [address] 02/23/2025 8:00 AM CDT Office Visit [facility] Heart and Vascular At [facility] [address] [facility] [address] [place] [address] Monty Cervantes MD [address] [facility] [address] [address] Austin Ackerman MD [address] [facility] [facility] [address] [place], [place] [phone] 08/22/2025 11:45 AM CDT Office Visit [facility] Internal Medicine Medical [place] A [facility] 189 [address] [facility] [address] [address] Monty Cervantes MD [address] [facility] [address] [place], [place] [address] documented as of this encounter Visit Diagnoses Not on filedocumented in this encounter Care Teams Burnishing Machine Operator Relationship Specialty Start Date End Date Monty Cervantes MD [address] [facility] [address] [place], [place] [phone] PCP - General 12/06/05 documented as of this encounter
--- OUTSIDE RECORDS SUMMARY | 2025-02-09 10:42 | XMS_ITS | Encounter Summary ---
Author Organization [facility] Address 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 [facility] [address] [place] [address] 02/23/2025 8:00 AM CDT Office Visit [facility] Heart and Vascular At [facility] [address] [facility] [address] [place] [address] Monty Cervantes MD [address] [facility] [address] [address] Austin Ackerman MD [address] [facility] [address] [place] [address] 08/22/2025 11:45 AM CDT Office Visit [facility] Internal Medicine Medical [place] A [facility] [address] [facility] [address] [address] Monty Cervantes MD [address] [facility] [address] [place] [address] documented as of this encounter Visit Diagnoses Diagnosis Twin , antepartum- Primary documented in this encounter Care Teams Biomedical Photographer Relationship Specialty Start Date End Date Monty Cervantes MD [address] [facility] [address] [address] PCP - General 12/06/05 documented as of this encounter
--- OUTSIDE RECORDS SUMMARY | 2025-02-09 10:42 | XMS_ITS | Encounter Summary ---
Author Organization [facility] Address [address] [place] [address] Care Team Providers Care Construction Estimator Name Role Phone Monty Cervantes MD Primary Care Provider Encounter Details Date Type Department Care Team (Late st Contact Info) Description 10/30/2007 Outpatient Historical [facility] Internal Medicine [facility] [address] [facility] [address] [place] [address] Monty Cervantes MD [address] [place] [address] Social History Tobacco Use Types Packs/Day Years Used Date Smoking Tobacco: Never Assessed Comments Unknown Sex and Gender Information Value Date Recorded Sex Assigned at Not on file 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 Gender Identity Not on file Sexual Orientation Not on file documented as of this encounter Plan of Treatment Upcoming Encounters Date Type Department Care Team (Late st Contact Info) Description 02/17/2025 9:30 AM CDT Office Visit [facility] Internal Medicine [facility] [address] [facility] [address] [place] [address] Monty Cervantes MD [address] [place] [address] [address] [place] [address] 02/23/2025 8:00 AM CDT Office Visit [facility] Heart and Vascular At [facility] [address] [facility] [address] [place] [address] Monty Cervantes MD [address] [facility] [address] [address] Austin Ackerman MD [address] [facility] [address] [place], [place] [id number] 08/22/2025 11:45 AM CDT Office Visit [facility] Internal Medicine Medical [place] A [facility] 189 [address] [facility] [address] [address] Monty Cervantes MD [address] [facility] [address] [place], [place] [phone] documented as of this encounter Visit Diagnoses Not on filedocumented in this encounter Care Teams Construction Estimator Relationship Specialty Start Date End Date Monty Cervantes MD [address] [facility] [address] [place], [place] [phone] PCP - General 12/06/05 documented as of this encounter
--- OUTSIDE RECORDS SUMMARY | 2025-02-09 10:42 | XMS_ITS | Encounter Summary ---
Author Organization [facility] Address 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 [facility] [address] [place] [address] 02/23/2025 8:00 AM CDT Office Visit [facility] Heart and Vascular At [facility] [address] [facility] [address] [place] [address] Monty Cervantes MD [address] [facility] [address] [address] Austin Ackerman MD [address] [facility] [facility] [address] [place] [address] 08/22/2025 11:45 AM CDT Office Visit [facility] Internal Medicine Medical [place] A [facility] [address] [facility] [address] [address] Monty Cervantes MD [address] [facility] [address] [address] documented as of this encounter Procedures Procedure Name Priority Date/Time Associated Diagnosis Comments NM RENOGRAM W FLOW AND FUNCTION Timed Study 01/30/2009 11:00 AM CDT documented in this encounter Results * NM RENOGRAM W FLOW AND FUNCTION (01/30/2009 11:00 AM CDT) Anatomical Region Laterality Modality Abdomen Other 01/30/2009 11:0 0 AM CDT Narrative 01/31/2009 9:01 AM CDT [facility] [address] [place], [place] [address] Admit Date: 01/30/2009 STEPHANI DUNLAP Sex: F Admit Prov: ROE SARKAR Date: 1975 Primary Care Prov: MONTY CERVANTES CMRN: [id number] [facility] [address] [place] [address] IMAGING SERVICES Ordering Prov: N/A Accession Number: [id number] Interpretation RENAL PERFUSION AND FUNCTION 01/30/2009 History: 33-year-old with right flank pain. Previous CT showed minimal fullness in the right renal collecting system and absence of the lower pole calyceal stone on a prior CT suggesting the possibility of recently passed stone. Technique: Patient was initially hydrated with water orally. Flow and function was obtained with renogram curve analysis of differential function. Dose: 5 mCi Tc99m MAG 3 i.v. Imagin. There is prompt perfusion to both kidneys. There is normal pattern of uptake and excretion of the tracer. Excreted activity is noted within the renal collecting system, pelves, ureters and bladder. Renal functional anatomy appears adequately preserved. Left kidney may be slightly larger than the right. 2. Renogram curves demonstrate some slight blunting of the trans renal clearance of the tracer possibly due to hydrational effect. Differential function: Left kidney 58 % right kidney 42 %. Differential clearance: Left kidney T 1/2 max: 6 minutes; right kidney T- 1/2 max: 6 minutes Impression: 1. Normal renal perfusion and function. 2. No evidence of ureteral obstruction. 3. Renogram curves demonstrate essentially normal renal function and excretion. . Dictated by: GERALDINE NAVA 01/30/2009 16:09 Electronically signed by: GERALDINE NAVA 01/31/2009 09:00 Transcribed: 01/30/2009 19:45 AMK Procedure Note Geraldine Nava MD - 01/31/2009 [facility] [address] [place], [place] [address] Admit Date: 01/30/2009 STEPHANI DUNLAP Sex: F Admit Prov: ROE SARKAR Date: 1975 Primary Care Prov: MONTY CERVANTES CMRN: [id number] [id number] IMAGING SERVICES Ordering Prov: N/A Interpretation RENAL PERFUSION AND FUNCTION 01/30/2009 History: 33-year-old with right flank pain. Previous CT showedminimal fullness in the right renal collecting system and absence of thelower pole calyceal stone on a prior CT suggesting the possibility of recentlypassed stone. Technique: Patient was initially hydrated with water orally.Flow and function was obtained with renogram curve analysis ofdifferential function. Dose: 5 mCi Tc99m MAG 3 i.v. Imagin. There is prompt perfusion to both kidneys. There is normal patternof uptake and excretion of the tracer. Excreted activity is noted withinthe renal collecting system, pelves, ureters and bladder. Renalfunctional anatomy appears adequately preserved. Left kidney may be slightlylarger than the right. 2. Renogram curves demonstrate some slight blunting of the transrenal clearance of the tracer possibly due to hydrational effect. Differential function: Left kidney 58 % right kidney 42 %. Differential clearance: Left kidney T 1/2 max: 6 minutes; rightkidney T- 1/2 max: 6 minutes Impression: 1. Normal renal perfusion and function. 2. No evidence of ureteral obstruction. 3. Renogram curves demonstrate essentially normal renal functionand excretion. . Dictated by: GERALDINE NAVA 01/30/2009 16:09 Electronically signed by: GERALDINE NAVA 01/31/2009 09:00 Transcribed: 01/30/2009 19:45 AMK Roe Quintero MD NM ORDERABLES Final Result documented in this encounter Visit Diagnoses Diagnosis Calculus of kidney documented in this encounter Care Teams Him Clerk Relationship Specialty Start Date End Date Monty Cervantes MD [address] [place], [place] [address] [place] [address] PCP - General 12/06/05 documented as of this encounter
--- OUTSIDE RECORDS SUMMARY | 2025-02-09 10:42 | XMS_ITS | Encounter Summary ---
Author Organization [facility] Address 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 [facility] [address] [place] [address] 02/23/2025 8:00 AM CDT Office Visit [facility] Heart and Vascular At [facility] [address] [facility] [address] [place] [address] Monty Cervantes MD [address] [address] Austin Ackerman MD [address] [facility] [address] [place] [address] 08/22/2025 11:45 AM CDT Office Visit [facility] Internal Medicine Medical [place] [address] [address] Monty Cervantes MD [address] [place], [place] [phone] documented as of this encounter Procedures Procedure Name Priority Date/Time Associated Diagnosis Comments URINE CULTURE Routine 07/11/2008 11:51 AM CDT documented in this encounter Results * URINE CULTURE (07/11/2008 11:51 AM CDT) PRELIMINARY REPORT Pending [facility] FINAL REPORT No growth 24 hours [facility] 07/11/2008 11:5 1 AM CDT 07/11/2008 4:18 PM CDT Naye Brandon MD MICROBIOLOGY - GENERAL ORDERABL ES Final Result INTERFACE SYSTEM Refer to clinic/hospital department [facility] CLIA# [id number] [address] [facility] [place] [address] documented in this encounter Visit Diagnoses Not on filedocumented in this encounter Care Teams Paramedic Rn Relationship Specialty Start Date End Date Monty Cervantes MD [address] [facility] [address] [address] PCP - General 12/06/05 documented as of this encounter
--- OUTSIDE RECORDS SUMMARY | 2025-02-09 10:42 | XMS_ITS | Encounter Summary ---
Author Organization [facility] Address 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 [facility] [address] [place] [address] 02/23/2025 8:00 AM CDT Office Visit [facility] Heart and Vascular At [facility] [address] [facility] [address] [place] [address] Monty Cervantes MD [address] [facility] [address] [address] Austin Ackerman MD [address] [place] [address] 08/22/2025 11:45 AM CDT Office Visit [facility] Internal Medicine Medical [place] A [place] [address] [facility] [address] [address] Monty Cervantes MD [address] [facility] [address] [place], [place] [address] documented as of this encounter Procedures Procedure Name Priority Date/Time Associated Diagnosis Comments XR ABDOMEN 1 VW Routine 08/26/2008 10:33 AM CDT XR ABDOMEN AP W OBLIQUES 3 VW Routine 08/19/2008 9:10 AM CDT XR ABDOMEN 1 VW Routine 08/17/2008 2:14 PM CDT documented in this encounter Results * XR ABDOMEN 1 VW (08/26/2008 10:33 AM CDT) Anatomical Region Laterality Modality Abdomen Other 08/26/2008 10:3 3 AM CDT Narrative 08/26/2008 1:56 PM CDT [facility] [address] [place], [place] [address] Admit Date: 08/17/2008 ASHLEYKAYLEN Sex: F Admit Prov: OSWALDO ALEXANDRA [place] Date: 1975 Primary Care Prov: MONTY CERVANTES CMRN: [id number] Room: [facility] SSN: [id number] IMAGING SERVICES Ordering Prov: N/A Accession Number: [id number] Interpretation AP ABDOMEN, 08/26/2008 History: Right ureteral calculus. Findings: The bowel gas pattern is normal. Since a prior exam dated 08/19/2008, a right ureteral stent has been placed. There is a 3 mm right distal ureteral calculus, unchanged in position. No other urolithiasis is seen. . Dictated by: CRISS POOL 08/26/2008 13:13 Electronically signed by: CRISS POOL 08/26/2008 13:55 Transcribed: 08/26/2008 13:15 DKT Procedure Note Criss Pool MD - 08/26/2008 [address] [address] [place], [place] [address] Admit Date: 08/17/2008 KAYLEN DUNLAP Sex: F Admit Prov: OSWALDO ALEXANDRA Date: 1975 Primary Care Prov: DEV MONTY Latoya CMRN: [id number] Room: [facility] SSN: [id number] IMAGING SERVICES Ordering Prov: N/A Interpretation AP ABDOMEN, 08/26/2008 History: Right ureteral calculus. Findings: The bowel gas pattern is normal. Since a prior exam dated 08/19/2008, a right ureteral stent has been placed. There is a 3 mmright distal ureteral calculus, unchanged in position. No otherurolithiasis is seen. . Dictated by: CRISS POOL 08/26/2008 13:13 Electronically signed by: CRISS POOL 08/26/2008 13:55 Transcribed: 08/26/2008 13:15 DKT us Roe Quintero MD DIAGNOSTIC IMAGING ORDERABLES Final Result * XR ABDOMEN AP W OBLIQUE VIEWS (08/19/2008 9:10 AM CDT) Anatomical Region Laterality Modality Abdomen Other 08/19/2008 9:10 AM CDT Narrative 08/19/2008 11:36 AM CDT [address] [address] [place], [place] [address] Admit Date: 08/17/2008 KAYLEN DUNLAP Sex: F Admit Prov: OSWALDO ALEXANDRA Date: 1975 Primary Care Prov: MONTY CERVANTES CMRN: [id number] [id number] IM[facility]ING SERVICES Ordering Prov: N/A Accession Number: [id number] Interpretation ABDOMINAL WITH OBLIQUES, 08/19/2008 History: Stone. Examination of the abdomen compared with 08/17/08. There is a 3.5 mm calcification noted in the right side of the pelvis, unchanged from 08/17/08. This could represent a known ureteral stone. No other opaque stones are seen. Bowel gas pattern is unremarkable. Impression: Possible distal right ureteral stone. . Dictated by: GERALDINE WARREN 08/19/2008 11:30 Electronically signed by: GERALDINE WARREN 08/19/2008 11:35 Transcribed: 08/19/2008 11:34 SMM Procedure Note Geraldine Warren MD - 08/19/2008 [facility] [address] [place], [place] [address] Admit Date: 08/17/2008 KAYLEN DUNLAP Sex: F Admit Prov: OSWALDO ALEXANDRA Date: 1975 Primary Care Prov: MONTY CERVANTES CMRN: [id number] [facility] [id number] IMAGING SERVICES Ordering Prov: N/A Interpretation ABDOMINAL WITH OBLIQUES, 08/19/2008 History: Stone. Examination of the abdomen compared with 08/17/08. There is a 3.5 mm calcification noted in the right side of the pelvis, unchangedfrom 08/17/08. This could represent a known ureteral stone. No otheropaque stones are seen. Bowel gas pattern is unremarkable. Impression: Possible distal right ureteral stone. . Dictated by: GERALDINE WARREN 08/19/2008 11:30 Electronically signed by: GERALDINE WARREN 08/19/2008 11:35 Transcribed: 08/19/2008 11:34 SMM us Oswaldo Alexandra MD DIAGNOSTIC IMAGING ORDERABLES F inal Result * XR ABDOMEN 1 VW (08/17/2008 2:14 PM CDT) Anatomical Region Laterality Modality Abdomen Other 08/17/2008 2:14 PM CDT Narrative 08/17/2008 2:39 PM CDT [address] [address] [place], [place] [address] Admit Date: 08/17/2008 KAYLEN DUNLAP Sex: F Admit Prov: OSWALDO ALEXANDRA Date: 1975 Primary Care Prov: MONTY CERVANTES CMRN: [id number] Room: [facility]: [id number] IMAGING SERVICES Ordering Prov: N/A Accession Number: [id number] Interpretation Exam: Abdomen, 2 views on 08/17/2008.. History: Renal stones. There is stool and gas throughout the abdomen in an unremarkable pattern. No abnormal soft tissue densities or organomegaly are evident. There are small rounded calcific densities within the pelvis most likely representing phleboliths. No calcific densities more suggestive of urinary stones or gallstones are seen. The bony structures are unremarkable. Conclusion: Negative exam. . Dictated by: CELESTINO PITTMAN 08/17/2008 14:35 Electronically signed by: CELESTINO PITTMAN 08/17/2008 14:38 Procedure Note Celestino Pittman MD - 08/17/2008 [address] [address] [place], [place] [address] Admit Date: 08/17/2008 CJ DUNLAPNIFER [place] Sex: F Admit Prov: OSWALDO ALEXANDRA Date: 1975 Primary Care Prov: MONTY CERVANTES CMRN: [id number] [facility] [id number] IMAGING SERVICES Ordering Prov: N/A Interpretation Exam: Abdomen, 2 views on 08/17/2008.. History: Renal stones. There is stool and gas throughout the abdomen in an unremarkablepattern. No abnormal soft tissue densities or organomegaly are evident. Thereare small rounded calcific densities within the pelvis most likelyrepresenting phleboliths. No calcific densities more suggestive of urinary stonesor gallstones are seen. The bony structures are unremarkable. Conclusion: Negative exam. . Dictated by: CELESTINO PITTMAN 08/17/2008 14:35 Electronically signed by: CELESTINO PITTMAN 08/17/2008 14:38 us Oswaldo Alexandra MD DIAGNOSTIC IMAGING ORDERABLES F inal Result documented in this encounter Visit Diagnoses Diagnosis Calculus of kidney documented in this encounter Care Teams Automotive Drivability Technician Relationship Specialty Start Date End Date Monty Cervantes MD [address] [place] [address] PCP - General 12/06/05 documented as of this encounter
--- OUTSIDE RECORDS SUMMARY | 2025-02-09 10:42 | XMS_ITS | Encounter Summary ---
Author Organization [facility] Address [address] [place] [address] Care Team Providers Care Fbi Special Agent Name Role Phone Monty Cervantes MD Primary Care Provider Encounter Details Date Type Department Care Team (Late st Contact Info) Description 10/30/2007 Outpatient Historical [facility] Internal Medicine [place] A [facility] 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 Gender Identity Not on file Sexual Orientation Not on file documented as of this encounter Plan of Treatment Upcoming Encounters Date Type Department Care Team (Late st Contact Info) Description 02/17/2025 9:30 AM CDT Office Visit [facility] Internal Medicine [place] [facility] [address] [facility] [address] [place] [address] Monty Cervantes MD [address] [place] [address] [address] [place] [address] 02/23/2025 8:00 AM CDT Office Visit [facility] Heart and Vascular At [facility] [address] [facility] [address] [place] [address] Monty Cervantes MD [address] [facility] [address] [place], [place] [address] Austin Ackerman MD [address] [facility] [address] [place], [place] [id number] 08/22/2025 11:45 AM CDT Office Visit [facility] Internal Medicine [place] A [facility] [address] [facility] [address] [address] Monty Cervantes MD [address] [facility] [address] [place], [place] [address] documented as of this encounter Visit Diagnoses Not on filedocumented in this encounter Care Teams Fbi Special Agent Relationship Specialty Start Date End Date Monty Cervantes MD [address] [facility] [address] [place], [place] [phone] PCP - General 12/06/05 documented as of this encounter
--- OUTSIDE RECORDS SUMMARY | 2025-02-09 10:42 | XMS_ITS | Encounter Summary ---
Author Organization [facility] Address [address] [place] [address] Care Team Providers Care Web Support Engineer Name Role Phone Monty Cervantes MD Primary Care Provider Encounter Details Date Type Department Care Team (Late st Contact Info) Description 02/22/2008 Orders Only [facility] Internal Medicine Medical [place] A [facility] [address] [facility] [address] [address] Salma Deleon MD [facility] [place] [address] Social History Tobacco Use Types Packs/Day Years Used Date Smoking Tobacco: Never Assessed Comments Unknown Sex and Gender Information Value Date Recorded Sex Assigned at Not on file 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 CURRENT ALLERGY LIST: [facility] NUMBER: [phone] OTHER INFORMATION: Patient is not currently . Patient is not currently nursing. PROBLEMS: HEADACHE: The symptoms began several months ago. Patient complains of headache...no dizziness, blurred vision......pain behind eyes......seems like laying down only helps....patient has tried excedrin, advil and other otc meds....has also gone to eye doctor.....she was wondering if she can try mari nal again SECTION 1: REQUESTED ACTION pia 02/22/08 at 10:11 am: MEDICATION REQUEST: MEDICATIONS: FIORINAL ORAL CAPSULE CONVENTIONAL 50-325-40 MG, 1 Two Times A Day, As Needed, 60 Dispensed, 5 Fills, status: DISCONTINUED, 12/06/2005. DOCTOR`S RESPONSE: almita 02/22/08 at 10:16 am MEDICATIONS: Call in to Pharmacy will need to discuss with Dr. Cervantes additional refills. FIORINAL ORAL CAPSULE CONVENTIONAL 50-325-40 MG, one q 4 hours prn., 20 Dispensed, status: NEW PRESCRIPTION, 02/22/2008. FINAL ACTION: abhilash 02/22/08 at 12:09 pm Left message on patient`s recorder or with a family member 02/22/2008 at 12:10 pm. at work for her to call Called pharmacy at 02/22/08 at 12:09 pm. documented in this encounter Plan of Treatment Upcoming Encounters Date Type Department Care Team (Late st Contact Info) Description 02/17/2025 9:30 AM CDT Office Visit [facility] Internal Medicine Medical [facility] [address] [facility] [address] [place] [address] Monty Cervantes MD [address] [place] [phone] 02/23/2025 8:00 AM CDT Office Visit [facility] Heart and Vascular At [facility] [address] [facility] [address] [place] [address] Monty Cervantes MD [address] [place] [address] [address] [place] [address] Austin Ackerman MD [address] [facility] [address] [place], [place] [phone] 08/22/2025 11:45 AM CDT Office Visit [facility] Internal Medicine Medical [facility] [address] [facility] [address] [address] Monty Cervantes MD [address] [facility] [address] [address] documented as of this encounter Visit Diagnoses Not on filedocumented in this encounter Care Teams Web Support Engineer Relationship Specialty Start Date End Date Monty Cervantes MD [address] [facility] [address] [place], [place] [phone] PCP - General 12/06/05 documented as of this encounter
--- OUTSIDE RECORDS SUMMARY | 2025-02-09 10:42 | XMS_ITS | Encounter Summary ---
Author Organization [facility] Address 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 [address] [place] [address] Monty Cervantes MD [address] [facility] [address] [address] 02/23/2025 8:00 AM CDT Office Visit [facility] Heart and Vascular At [facility] [address] [facility] [address] [place] [address] Monty Cervantes MD [address] [facility] [address] [address] Austin Ackerman MD [address] [facility] [address] [place] [address] 08/22/2025 11:45 AM CDT Office Visit [facility] Internal Medicine Medical [place] [address] [facility] [address] [address] Monty Cervantes MD [address] [facility] [address] [address] documented as of this encounter Procedures Procedure Name Priority Date/Time Associated Diagnosis Comments XR ABDOMEN 1 VW Routine 01/13/2009 10:34 AM CROWN IRONER documented in this encounter Results * XR ABDOMEN 1 VW (01/13/2009 10:34 AM CROWN IRONER) Anatomical Region Laterality Modality Abdomen Other 01/13/2009 10:3 4 AM CROWN IRONER Narrative 01/13/2009 10:48 AM CROWN IRONER [facility] [address], [place] [address] Admit Date: 01/13/2009 STEPHANI DUNLAP [place] Sex: F Admit Prov: ROE SARKAR Date: 1975 Primary Care Prov: MONTY CERVANTES CMRN: [id number] Room: [facility] SSN: [id number] IMAGING SERVICES Ordering Prov: N/A Accession Number: [id number] Interpretation AP abdomen 01/13/2009. History: Renal calculus. Findings: Comparison study is dated 08/26/2008. The right ureteral stent has been removed. No abnormal radiopaque calcification is seen projecting over either kidney. Phleboliths are visualized in the pelvis. No abnormal radiopaque calcification is seen along the course of either ureter. The bowel gas pattern is nonspecific. . Dictated by: DAYAN RIVERS 01/13/2009 10:45 Electronically signed by: DAYAN RIVERS 01/13/2009 10:47 Procedure Note Dayan Sheets - 01/13/2009 [facility] [address] [place], [place] [address] Admit Date: 01/13/2009 STEPHANI DUNLAP Sex: F Admit Prov: ROE SARKAR Date: 1975 Primary Care Prov: MONTY CERVANTES CMRN: [id number] [id number] Ordering Prov: N/A Interpretation AP abdomen 01/13/2009. History: Renal calculus. Findings: Comparison study is dated 08/26/2008. The right ureteralstent has been removed. No abnormal radiopaque calcification is seenprojecting over either kidney. Phleboliths are visualized in the pelvis. Noabnormal radiopaque calcification is seen along the course of either ureter.The bowel gas pattern is nonspecific. . Dictated by: DAYAN RIVERS 01/13/2009 10:45 Electronically signed by: DAYAN RIVERS 01/13/2009 10:47 Roe Quintero MD DIAGNOSTIC IMAGING ORDERABLES Final Result documented in this encounter Visit Diagnoses Diagnosis Calculus of kidney documented in this encounter Care Teams Cart Pusher Relationship Specialty Start Date End Date Monty Cervantes MD [address] [place] [address] [address] [address] PCP - General 12/06/05 documented as of this encounter
--- OUTSIDE RECORDS SUMMARY | 2025-02-09 10:42 | XMS_ITS | Encounter Summary ---
Author Organization [facility] Address 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 Gender Identity Not on file Sexual Orientation Not on file documented as of this encounter Plan of Treatment Upcoming Encounters Date Type Department Care Team (Late st Contact Info) Description 02/17/2025 9:30 AM CDT Office Visit [facility] Internal Medicine Medical [place] A [facility] [address] [facility] [address] [place] [address] Monty Cervantes MD [address] [facility] [address] [place] [address] 02/23/2025 8:00 AM CDT Office Visit [facility] Heart and Vascular At [facility] [address] [facility] [address] [place] [address] Monty Cervantes MD [address] [facility] [address] [address] Austin Ackerman MD [address] [facility] [address] [place] [address] 08/22/2025 11:45 AM CDT Office Visit [facility] Internal Medicine Medical [place] A [facility] [address] [facility] [address] [address] Monty Cervantes MD [address] [facility] [address] [place] [address] documented as of this encounter Visit Diagnoses Diagnosis Twin , antepartum- Primary documented in this encounter Care Teams Radiologic Technology Instructor Relationship Specialty Start Date End Date Monty Cervantes MD [address] [facility] [address] [address] PCP - General 12/06/05 documented as of this encounter
--- OUTSIDE RECORDS SUMMARY | 2025-02-09 10:42 | XMS_ITS | Encounter Summary ---
Author Organization [facility] Address 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 [facility] [address] [place] [address] 02/23/2025 8:00 AM CDT Office Visit [facility] Heart and Vascular At [facility] [address] [facility] [address] [place] [address] Monty Cervantes MD [address] [facility] [address] [address] Austin Ackerman MD [address] [facility] [address] [place] [address] 08/22/2025 11:45 AM CDT Office Visit [facility] Internal Medicine Medical [place] A [facility] [address] [facility] [address] [address] Monty Cervantes MD [address] [facility] [address] [place] [address] documented as of this encounter Visit Diagnoses Diagnosis Calculus of kidney documented in this encounter Care Teams Secondary Connector Armature Relationship Specialty Start Date End Date Monty Cervantes MD [address] [facility] [address] [address] PCP - General 12/06/05 documented as of this encounter
--- OUTSIDE RECORDS SUMMARY | 2025-02-09 10:42 | XMS_ITS | Encounter Summary ---
Author Organization [facility] Address [address] [place] [address] Care Team Providers Care Apparatus Cleaner Name Role Phone Monty Cervantes MD Primary Care Provider Encounter Details Date Type Department Care Team (Late st Contact Info) Description 01/13/2009 Outpatient Historical [place] [address] [facility] [address] [place] [address] Social History Tobacco Use Types Packs/Day Years Used Date Smoking Tobacco: Never Assessed Comments No Sex and Gender Information Value Date Recorded Sex Assigned at Not on file Legal Sex Female 2:38 AM HOST HOSTESS Gender Identity Not on file Sexual Orientation Not on file documented as of this encounter Plan of Treatment Upcoming Encounters Date Type Department Care Team (Late st Contact Info) Description 02/17/2025 9:30 AM CDT Office Visit [facility] Internal Medicine Medical [place] [address] [facility] [address] [place] [address] Monty Cervantes MD [address] [facility] [address] [address] 02/23/2025 8:00 AM CDT Office Visit [facility] Heart and Vascular At [facility] [address] [facility] [address] [place] [address] Monty Cervantes MD [address] [facility] [address] [address] Austin Ackerman MD [address] [facility] [address] [place] [address] 08/22/2025 11:45 AM CDT Office Visit [facility] Internal Medicine Medical [place] [address] [address] Monty Cervantes MD [address] [facility] [address] [place], [place] [address] documented as of this encounter Procedures Procedure Name Priority Date/Time Associated Diagnosis Comments CT ABDOMEN PELVIS WO CONTRAST Timed Study 01/13/2009 2:48 PM HOST HOSTESS documented in this encounter Results * CT ABDOMEN PELVIS WO CONTRAST (01/13/2009 2:48 PM HOST HOSTESS) Anatomical Region Laterality Modality Abdomen Other 01/13/2009 2:48 PM HOST HOSTESS Narrative 01/15/2009 12:34 AM HOST HOSTESS [facility] [address] [place], [place] [address] Admit Date: 01/13/2009 STEPHANI DUNLAP [place] Sex: F Admit Prov: ROE SARKAR Date: 1975 Primary Care Prov: MONTY CERVANTES CMRN: [id number] Room: [facility] SSN: [id number] IMAGING SERVICES Ordering Prov: N/A Accession Number: [id number] Interpretation EXAM: CT ABDOMEN AND PELVIS, STONE PROTOCOL, 01/13/2009 Indication: Right flank pain. History of stones. Technique: 5 mm axial images of the abdomen and pelvis without contrast. Findings: Since prior CT of July 11, 2008, the stone at the ureteropelvic junction on the right is no longer present. The old scan also demonstrates a 4 mm nonobstructing stone in a lower pole right renal calyx which is not present on today's exam. There is minimal fullness of the right renal collecting system and ureter, but no significant hydronephrosis is present. There are no stones identified in either ureter or renal collecting system. Findings may be secondary to recent passage of right renal stone. There is no stone seen in the urinary bladder or urethra. The liver, gallbladder, adrenal glands, spleen and pancreas are within normal limits for a noncontrast exam. In the pelvis, a normal appendix is visualized. There is no free fluid or abscess. The bowel loops are normal. Impression: Currently, there is no stone visualized in either ureter or collecting system. Minimal fullness of the right renal collecting system and absence of a lower pole calyceal stone seen on a prior CT suggest the possibility of a recently passed stone. . Dictated by: GO LANDA 01/13/2009 15:26 Electronically signed by: GO LANDA 01/15/2009 00:32 Transcribed: 01/14/2009 14:00 DKT Procedure Note Go Landa - 01/15/2009 [facility] [address] [place], [place] [address] Admit Date: 01/13/2009 STEPHANI DUNLAP Sex: F Admit Prov: ROE SARKAR Date: 1975 Primary Care Prov: CERVANTES MONTY G CMRN: [id number] [id number] IM[facility]ING SERVICES Ordering Prov: N/A Interpretation EXAM: CT ABDOMEN AND PELVIS, STONE PROTOCOL, 01/13/2009 Indication: Right flank pain. History of stones. Technique: 5 mm axial images of the abdomen and pelvis withoutcontrast. Findings: Since prior CT of July 11, 2008, the stone at the ureteropelvicjunction on the right is no longer present. The old scan also demonstrates a 4mm nonobstructing stone in a lower pole right renal calyx which is notpresent on today's exam. There is minimal fullness of the right renalcollecting system and ureter, but no significant hydronephrosis is present.There are no stones identified in either ureter or renal collecting system.Findings may be secondary to recent passage of right renal stone. There is nostone seen in the urinary bladder or urethra. The liver, gallbladder,adrenal glands, spleen and pancreas are within normal limits for anoncontrast exam. In the pelvis, a normal appendix is visualized. There is no freefluid or abscess. The bowel loops are normal. Impression: Currently, there is no stone visualized in either ureter orcollecting system. Minimal fullness of the right renal collecting system andabsence of a lower pole calyceal stone seen on a prior CT suggest thepossibility of a recently passed stone. . Dictated by: GO LANDA 01/13/2009 15:26 Electronically signed by: GO LANDA 01/15/2009 00:32 Transcribed: 01/14/2009 14:00 DKT Roe Qu[address] ORDERABLES Final Result documented in this encounter Visit Diagnoses Not on filedocumented in this encounter Care Teams Apparatus Cleaner Relationship Specialty Start Date End Date Monty Cervantes MD [address] [place], [place] [address] [address] PCP - General 12/06/05 documented as of this encounter
--- OUTSIDE RECORDS SUMMARY | 2025-02-09 10:42 | XMS_ITS | Encounter Summary ---
Author Organization [facility] Address [address] [place] [address] Care Team Providers Care Stem Lead Former Name Role Phone Monty Cervantes MD Primary Care Provider Encounter Details Date Type Department Care Team (Latest Contact Info) Description 06/19/2000 Inpatient Historical [facility] PATIENT IN A BED Aquilino Grant MD [address] [facility] [address] [place] [address] Jennifer Lemus MD [address] [place] [address] Twin , antepartum (Primary Dx) Social History Tobacco Use Types Packs/Day Years Used Date Smoking Tobacco: Never Assessed Comments Unknown Sex and Gender Information Value Date Recorded Sex Assigned at Not on file 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 Gender Identity Not on file Sexual Orientation Not on file documented as of this encounter Plan of Treatment Upcoming Encounters Date Type Department Care Team (Late st Contact Info) Description 02/17/2025 9:30 AM CDT Office Visit [facility] Internal Medicine Medical [place] A [facility] [address] [facility] [address] [address] Monyt Cervantes MD [address] [facility] [address] [place], [place] [address] 02/23/2025 8:00 AM CDT Office Visit [facility] Heart and Vascular At [facility] [address] [facility] [address] [place] [address] Monty Cervantes MD [address] [facility] [address] [address] Austin Ackerman MD [address] [facility] [address] [place] [address] 08/22/2025 11:45 AM CDT Office Visit [facility] Internal Medicine Medical [place] [address] [facility] [address] [address] Monty Cervantes MD [address] [place] [address] [address] [place], [place] [id number] documented as of this encounter Visit Diagnoses Diagnosis Twin , antepartum- Primary documented in this encounter Care Teams Stem Lead Former Relationship Specialty Start Date End Date Monty Cervantes MD [address] [place] [address] [address] [place], [place] [address] PCP - General 12/06/05 documented as of this encounter
--- OUTSIDE RECORDS SUMMARY | 2025-02-09 10:42 | XMS_ITS | Encounter Summary ---
Author Organization [facility] Address [address] [place] [address] Care Team Providers Care Electronic Sensing Equipment Assembler Name Role Phone Monty Cervantes MD Primary Care Provider Encounter Details Date Type Department Care Team (Latest Contact Info) Description 07/07/2000 Outpatient Historical [facility] Jennifer Lemus MD [address] [place] [address] Twin , antepartum (Primary Dx) Social History Tobacco Use Types Packs/Day Years Used Date Smoking Tobacco: Never Assessed Comments Unknown Sex and Gender Information Value Date Recorded Sex Assigned at Not on file Legal Sex Female 2:38 AM CASER Gender Identity Not on file Sexual Orientation Not on file documented as of this encounter Plan of Treatment Upcoming Encounters Date Type Department Care Team (Late st Contact Info) Description 02/17/2025 9:30 AM CDT Office Visit [facility] Internal Medicine Medical [place] A [facility] [address] [facility] [address] [place] [address] Monty Cervantes MD [address] [facility] [address] [place] [address] 02/23/2025 8:00 AM CDT Office Visit [facility] Heart and Vascular At [facility] [address] [facility] [address] [place] [address] Monty Cervantes MD [address] [facility] [address] [address] Austin Ackerman MD [address] [facility] [address] [place] [address] 08/22/2025 11:45 AM CDT Office Visit [facility] Internal Medicine Medical [place] A [facility] [address] [facility] [address] [address] Monty Cervantes MD [address] [facility] [address] [place] [address] documented as of this encounter Visit Diagnoses Diagnosis Twin , antepartum- Primary documented in this encounter Care Teams Electronic Sensing Equipment Assembler Relationship Specialty Start Date End Date Monty Cervantes MD [address] [facility] [address] [address] PCP - General 12/06/05 documented as of this encounter
--- OUTSIDE RECORDS SUMMARY | 2025-02-09 10:42 | XMS_ITS | Encounter Summary ---
Author Organization [facility] Address [address] [place] [address] Care Team Providers Care Manager Marketing Sales Name Role Phone Monty Cervantes MD Primary Care Provider Encounter Details Date Type Department Care Team (Late st Contact Info) Description 01/30/2009 Outpatient Historical [facility] [place], Authorized P NO ADDRESS ON FILE Monty Cervantes MD [address] [place] [id number] Urinary Tract Infection, Site not Specified Social History Tobacco Use Types Packs/Day Years Used Date Smoking Tobacco: Never Assessed Comments No Sex and Gender Information Value Date Recorded Sex Assigned at Not on file 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 Gender Identity Not on file Sexual Orientation Not on file documented as of this encounter Plan of Treatment Upcoming Encounters Date Type Department Care Team (Late st Contact Info) Description 02/17/2025 9:30 AM CDT Office Visit [facility] Internal Medicine Medical [place] [address] [address] [place] [phone] Monty Cervantes MD [address] [place], [place] [address] [place], [place] [phone] 02/23/2025 8:00 AM CDT Office Visit [facility] [address] [place] [address] Monty Cervantes MD [address] [facility] [address] [address] Austin Ackerman MD [address] [place], [place] [id number] 08/22/2025 11:45 AM CDT Office Visit [facility] Internal Medicine Medical [place] [address] [id number] Monty Cervantes MD [address] [facility] [address] [place], [place] [id number] documented as of this encounter Procedures Procedure Name Priority Date/Time Associated Diagnosis Comments ECHO COMPLETE Routine 02/01/2009 8:03 PM CDT CBC WITH DIFFERENTIAL Routine 02/01/2009 6:15 AM CDT C-REACTIVE PROTEIN Routine 02/01/2009 6: [address] CHEST ABDOMEN PELVIS W CONT Routine 01/31/2009 2:00 AM CDT LACTIC ACID Stat 01/31/2009 1:12 AM CDT BLOOD CULTURE Stat 01/31/2009 1:12 AM CDT BLOOD CULTURE Stat 01/31/2009 1:08 AM CDT URINE CULTURE Stat 01/31/2009 1:08 AM CDT URINALYSIS WITH REFLEX CULTURE Stat 01/31/2009 12:50 AM CDT CBC WITH DIFFERENTIAL Stat 01/31/2009 12:50 AM CDT URINALYSIS W/REFLEX MICROSCOPIC Stat 01/31/2009 12:50 AM CDT C-REACTIVE PROTEIN Stat 01/31/2009 12 :50 AM CDT COMPREHENSIVE METABOLIC PANEL Stat 01/31/2009 12:50 AM CDT documented in this encounter Results * ECHOCARDIOGRAM COMPLETE (02/01/2009 8:03 PM CDT) Narrative INTERFACE SYSTEM - 02/01/2009 8:03 [place] [address] [email or web address] Transthoracic Echocardiogram Patient: Kaylen Dunlap Study ID: ADULT ECHO FULL Gender: F : 1975 Age: 33 years Race: 1 Room: Bed: Height: 63 in ( 160 cm ) Study Date: February 01, 2009 Patient status: Inpatient Weight: 143.66 lb ( 65.3 kg ) Access. #: [id number] POC: Ordering: Paul Consulting: Isela Maciel Attending MD: Paul Admitting MD: Paul Indications and History: INDICATIONS: Evaluate for valvular vegetation. Assess left ventricular function. HISTORY: Murmur, fever, recent piercing. Procedure data: PROCEDURE INFORMATION: A transthoracic complete 2D study was performed. Additional evaluation included M-mode, complete spectral Doppler, and color Doppler. Study Conclusions: SUMMARY: - Overall left ventricular systolic function was hyperdynamic. Left ventricular ejection fraction was estimated to be 65 %. Left ventricular diastolic function parameters were normal. - Left atrial size was normal. - Right ventricular size was normal. Right ventricular systolic function was normal. - Estimated peak pulmonary artery systolic pressure was 35 mmHg. Cardiac anatomy: LEFT VENTRICLE: Left ventricular size was normal. Overall left ventricular systolic function was hyperdynamic. Left ventricular ejection fraction was estimated to be 65 %. There were no left ventricular regional wall motion abnormalities. Left ventricular wall thickness was normal. Doppler interpretation(s): There was a normal transmitral flow pattern. The deceleration time of the early transmitral Doppler flow velocity was normal. The pulmonary vein flow pattern was normal. Left ventricular diastolic function parameters were normal. AORTIC VALVE: The aortic valve was trileaflet. Aortic valve thickness was normal. There was normal aortic valve leaflet excursion. Doppler interpretation(s): Transaortic velocity was within the normal range. AORTA: The aortic root was normal in size. MITRAL VALVE: Mitral valve structure was normal. There was normal mitral valve leaflet excursion. Doppler interpretation(s): There was no significant mitral valvular regurgitation. LEFT ATRIUM: Left atrial size was normal. RIGHT VENTRICLE: Right ventricular size was normal. Right ventricular systolic function was normal. PULMONIC VALVE: The pulmonic valve was not well visualized. Doppler interpretation(s): The transpulmonic velocity was within the normal range. There was mild pulmonic regurgitation. TRICUSPID VALVE: The tricuspid valve structure was normal. Tricuspid leaflet excursion was normal. Doppler interpretation(s): There was mild tricuspid valvular regurgitation. PULMONARY ARTERY: Doppler interpretation(s): Estimated peak pulmonary artery systolic pressure was 35 mmHg. RIGHT ATRIUM: Right atrial size was normal. PERICARDIUM: There was no pericardial effusion. Measurement tables: M-mode measurements LEFT VENTRICLE NORMAL LVID ed 47 mm -- LVID es 32 mm -- IVS ed 9 mm -- LVPWT ed 8 mm -- AORTA NORMAL AoD (root) 30 mm -- Doppler measurements LVOT, AV, AORTA NORMAL LVOT max velocity 78 cm/sec -- LVOT VTI 16 cm -- Mean AV velocity 58 cm/sec -- Peak AV velocity 171 cm/sec -- AV VTI 29 cm -- Mean AV gradient 6.1 mmHg -- Peak AV gradient 12 mmHg -- MITRAL VALVE NORMAL Peak E velocity 83 cm/sec -- Peak A velocity 59 cm/sec -- MV peak E/A 1.41 -- MV deceleration time 276 msec -- Peak gradient 3 mmHg -- RIGHT VENTRICLE NORMAL Tricuspid regurgitant velocity 246 cm/sec -- Estimated RV systolic pressure 34 mmHg -- RVOT, PV, PA NORMAL PV peak velocity 117 cm/sec -- PV peak gradient 6 mmHg -- Prepared and Electronically Authenticated Aquilino Holguin MD Confirmed February 01, 2009 19:28:33 Procedure Note Provider, Historical - 02/01/2009 [place] [address] [place], [place] [address]vyz: [email or web address] Transthoracic Echocardiogram Patient: Kaylen Dunlap Study ID: ADULT ECHO FULL Gender: F : 1975 Age: 33 years Race: 1 Room: Bed: Height: 63 in ( 160 cm ) Study Date: February 01, 2009 Patient status: Inpatient Weight: 143.66 lb ( 65.3 kg ) Access. #: [id number] POC: Ordering: Paul Consulting: Isela Maciel Attending MD: Paul Admitting MD: Paul Indications and History: INDICATIONS: Evaluate for valvular vegetation. Assess left ventricular function. HISTORY: Murmur, fever, recent piercing. Procedure data: PROCEDURE INFORMATION: A transthoracic complete 2D study was performed. Additional evaluation included M-mode, complete spectral Doppler, and color Doppler. Study Conclusions: SUMMARY: - Overall left ventricular systolic function was hyperdynamic. Left ventricular ejection fraction was estimated to be 65 %. Left ventricular diastolic function parameters were normal. - Left atrial size was normal. - Right ventricular size was normal. Right ventricular systolicfunction was normal. - Estimated peak pulmonary artery systolic pressure was 35 mmHg. Cardiac anatomy: LEFT VENTRICLE: Left ventricular size was normal. Overall left ventricular systolic function was hyperdynamic. Left ventricular ejection fraction wasestimated to be 65 %. There were no left ventricular regional wall motion abnormalities. Left ventricular wall thickness was normal. Doppler interpretation(s): There was a normal transmitral flow pattern. The deceleration time of the early transmitral Doppler flow velocity was normal. The pulmonary vein flow pattern was normal. Left ventricular diastolic function parameters were normal. AORTIC VALVE: The aortic valve was trileaflet. Aortic valve thickness was normal.There was normal aortic valve leaflet excursion. Doppler interpretation(s): Transaortic velocity was within the normal range. AORTA: The aortic root was normal in size. MITRAL VALVE: Mitral valve structure was normal. There was normal mitral valve leaflet excursion. Doppler interpretation(s): There was no significant mitral valvular regurgitation. LEFT ATRIUM: Left atrial size was normal. RIGHT VENTRICLE: Right ventricular size was normal. Right ventricular systolic functionwas normal. PULMONIC VALVE: The pulmonic valve was not well visualized. Doppler interpretation(s):The transpulmonic velocity was within the normal range. There was mildpulmonic regurgitation. TRICUSPID VALVE: The tricuspid valve structure was normal. Tricuspid leaflet excursionwas normal. Doppler interpretation(s): There was mild tricuspid valvular regurgitation. PULMONARY ARTERY: Doppler interpretation(s): Estimated peak pulmonary artery systolic pressure was 35 mmHg. RIGHT ATRIUM: Right atrial size was normal. PERICARDIUM: There was no pericardial effusion. Measurement tables: M-mode measurements LEFT VENTRICLE NORMAL LVID ed 47 mm -- LVID es 32 mm -- IVS ed 9 mm -- LVPWT ed 8 mm -- AORTA NORMAL AoD (root) 30 mm -- Doppler measurements LVOT, AV, AORTA NORMAL LVOT max velocity 78 cm/sec -- LVOT VTI 16 cm -- Mean AV velocity 58 cm/sec -- Peak AV velocity 171 cm/sec -- AV VTI 29 cm -- Mean AV gradient 6.1 mmHg -- Peak AV gradient 12 mmHg -- MITRAL VALVE NORMAL Peak E velocity 83 cm/sec -- Peak A velocity 59 cm/sec -- MV peak E/A 1.41 -- MV deceleration time 276 msec -- Peak gradient 3 mmHg -- RIGHT VENTRICLE NORMAL Tricuspid regurgitant velocity 246 cm/sec -- Estimated RV systolic pressure 34 mmHg -- RVOT, PV, PA NORMAL PV peak velocity 117 cm/sec -- PV peak gradient 6 mmHg -- Prepared and Electronically Authenticated Aquilino Holguin MD Confirmed February 01, 2009 19:28:33 Monty Cervantes MD US ORDERABLES Final Resul t Performing Organization Address [facility] de Phone Number INTERFACE SYSTEM Refer to clinic/hospital department * (ABNORMAL) C-REACTIVE PROTEIN (02/01/2009 6:15 AM CDT) CRP 5.4(H) 0.0 - 0.8 mg/dL [facility] Blood specimen (specimen) 02/01/2009 6:15 AM CDT 02/01/2009 6:45 AM CDT Monty Cervantes MD CHEMISTRY ORDERABLES Final Result Performing Organization Address [facility] de Phone Number INTERFACE SYSTEM Refer to clinic/hospital department [facility] CLIA# [id number] [address], [place] [address] * CBC WITH DIFFERENTIAL (02/01/2009 6:15 AM CDT) MCHC 32.2 31.5 - 35.5 % [facility] MCV 93.4 82.0 - 99.0 fL [facility] PLATELETS 233 140 - 350 K/uL [facility] HEMOGLOBIN 11.9 11.8 - 14.8 g/dL [facility] RDW 13.6 11.5 - 14.5 % [facility] WBC 4.9 4.0 - 9.8 K/uL [facility] MCH 30.1 27.2 - 32.6 pg [facility] MPV 10.2 9.3 - 12.4 fL [facility] HEMATOCRIT 37.0 35.5 - 44.0 % [facility] RDW-STDEV 46.5 37.1 - 48.7 fL [facility] RBC 3.96 3.90 - 4.90 M/uL [facility] NEUTROPHILS 55 45 - 70 % [facility] NEUTROPHIL ABSOLUTE 2.67 1.90 - 7.00 K/uL [facility] EOSINOPHILS 3 0 - 7 % [facility] EOSINOPHIL ABSOLUTE 0.15 0.00 - 0.70 K/uL [facility] LYMPHOCYTES 32 16 - 45 % [facility] LYMPHOCYTE ABSOLUTE 1.56 0.70 - 4.50 K/uL [facility] BASOPHILS 0 0 - 2 % [facility] BASOPHILS ABSOLUTE 0.01 0.00 - 0.20 K/uL [facility] MONOCYTES 10 3 - 13 % [facility] MONOCYTE ABSOLUTE 0.47 0.10 - 1.30 K/uL [facility] Blood specimen (specimen) 02/01/2009 6:15 AM CDT 02/01/2009 6:45 AM CDT Monty Cervantes MD HEMATOLOGY ORDERABLES Edite d INTERFACE SYSTEM Refer to clinic/hospital department [facility] CLIA# [id number] [address] [place] [address] * CT CHEST ABDOMEN PELVIS W CONT (01/31/2009 2:00 AM CDT) Anatomical Region Laterality Modality Chest Other 01/31/2009 2:00 AM CDT Narrative 01/31/2009 8:58 AM CDT [facility] [address] [place], [place] [address] Admit Date: 01/31/2009 KAYLEN DUNLAP [place] Sex: F Admit Prov: CHRISTIANNE CERVANTESHEN Latoya Date: 1975 Primary Care Prov: CHRISTIANNE CERVANTESHEN Latoya CMRN: [id number] Room: [address] [place] [address] SSN: [id number] IMAGING SERVICES Ordering Prov: N/A Accession Number: [id number] Interpretation CT SCAN OF THE CHEST WITH IV CONTRAST, 01/31/2009 Clinical History: Fever. Technique: 5 mm contiguous axial images were obtained from the lung apices through the lung bases following IV contrast administration. Findings: There is no pulmonary infiltrate, pleural effusion or pneumothorax. There is no mediastinal, hilar or axillary lymphadenopathy. The heart and great vessels are within normal limits. The bony thorax is unremarkable. Impression: Normal CT scan of the chest. CT SCAN OF THE ABDOMEN AND PELVIS WITH IV CONTRAST, 01/31/2009 Clinical History: Fever and flank pain. Technique: 5 mm contiguous axial images were obtained from the lung bases to the symphysis pubis following IV contrast administration. Findings: The lung bases are clear. The liver, spleen, pancreas, adrenal glands and kidneys are normal. There is no bowel dilatation or wall thickening. The caliber of the aorta is normal. There is no free air, free fluid, abscess or lymphadenopathy. In the pelvis, the bowel loops and bladder are normal. There is no mass or free fluid. Impression: Negative CT scan of the abdomen and pelvis. . Dictated by: CRISS POOL 01/31/2009 08:44 Electronically signed by: CRISS POOL 01/31/2009 08:57 Transcribed: 01/31/2009 08:54 SMM Procedure Note Criss Pool MD - 01/31/2009 [facility] [address] [place], [place] [address] Admit Date: 01/31/2009 KAYLEN DUNLAP Sex: F Admit Prov: MONTY CERVANTES Date: 1975 Primary Care Prov: MONTY CERVANTES CMRN: [id number] Room: [address] [place] [address] SSN: [id number] IMAGING SERVICES Ordering Prov: N/A Interpretation CT SCAN OF THE CHEST WITH IV CONTRAST, 01/31/2009 Clinical History: Fever. Technique: 5 mm contiguous axial images were obtained from the lungapices through the lung bases following IV contrast administration. Findings: There is no pulmonary infiltrate, pleural effusion or pneumothorax. There is no mediastinal, hilar or axillarylymphadenopathy. The heart and great vessels are within normal limits. The bonythorax is unremarkable. Impression: Normal CT scan of the chest. CT SCAN OF THE ABDOMEN AND PELVIS WITH IV CONTRAST, 01/31/2009 Clinical History: Fever and flank pain. Technique: 5 mm contiguous axial images were obtained from the lungbases to the symphysis pubis following IV contrast administration. Findings: The lung bases are clear. The liver, spleen, pancreas,adrenal glands and kidneys are normal. There is no bowel dilatation orwall thickening. The caliber of the aorta is normal. There is no freeair, free fluid, abscess or lymphadenopathy. In the pelvis, the bowel loops and bladder are normal. There is nomass or free fluid. Impression: Negative CT scan of the abdomen and pelvis. . Dictated by: CRISS POOL 01/31/2009 08:44 Electronically signed by: CRISS POOL 01/31/2009 08:57 Transcribed: 01/31/2009 08:54 SMM Ginger Espinoza MD CT ORDERABLES Final Result * BLOOD CULTURE (01/31/2009 1:12 AM CDT) REPORT/SPECIMEN COMMENT Specimen processed with suboptimal blood volume collected. Recommended adult blood volume is 8-10mL per bottle. [facility] PRELIMINARY REPORT No growth to date. Culture in progress [facility] FINAL REPORT No growth 5 days [facility] Blood specimen (specimen) 01/31/2009 1:12 AM CDT 01/31/2009 2:14 AM CDT Ginger Espinoza MD MICROBIOLOGY - GENERAL ORDERABLE S Final Result Performing Organization Address [facility] Phone Number INTERFACE SYSTEM Refer to clinic/hospital department [facility] CLIA# [id number] [address] [place] [address] * LACTIC ACID (01/31/2009 1:12 AM CDT) LACTIC ACID 0.6 0.5 - 2.2 mmol/L [facility] Blood specimen (specimen) 01/31/2009 1:12 AM CDT 01/31/2009 1:20 AM CDT Ginger Espinoza MD CHEMISTRY ORDERABLES Final Resul t Performing Organization Address [facility] de Phone Number INTERFACE SYSTEM Refer to clinic/hospital department [facility] CLIA# [id number] [address] [place] [address] * BLOOD CULTURE (01/31/2009 1:08 AM CDT) REPORT/SPECIMEN COMMENT Specimen processed with suboptimal blood volume collected. Recommended adult blood volume is 8-10mL per bottle. [facility] PRELIMINARY REPORT No growth to date. Culture in progress [facility] FINAL REPORT No growth 5 days [facility] Blood specimen (specimen) 01/31/2009 1:08 AM CDT 01/31/2009 2:16 AM CDT Ginegr Espinoza MD MICROBIOLOGY - GENERAL ORDERABLE S Final Result Performing Organization Address City/[facility] de Phone Number INTERFACE SYSTEM Refer to clinic/hospital department [facility] CLIA# [id number] [address] [place] [address] * URINE CULTURE (01/31/2009 1:08 AM CDT) PRELIMINARY REPORT Pending [facility] FINAL REPORT No growth 24 hours [facility] 01/31/2009 1:08 AM CDT 01/31/2009 2:06 AM CDT us Ginger Espinoza MD MICROBIOLOGY - GENERAL ORDERABLE S Final Result Performing Organization Address [facility] de Phone Number INTERFACE SYSTEM Refer to clinic/hospital department [facility] CLIA# [id number] [address] [place] [address] * (ABNORMAL) C-REACTIVE PROTEIN (01/31/2009 12:50 AM CDT) CRP 1.3(H) 0.0 - 0.8 mg/dL [facility] Blood specimen (specimen) 01/31/2009 12:50 AM CDT 01/31/2009 4:31 AM CDT Ginger Espinoza MD CHEMISTRY ORDERABLES Final Resul t Performing Organization Address City/[facility] de Phone Number INTERFACE SYSTEM Refer to clinic/hospital department [facility] CLIA# [id number] [address] [place] [address] * (ABNORMAL) URINALYSIS (01/31/2009 12:50 AM CDT) COLOR UA Pale Yellow [facility] NITRITE UA Negative Negative [facility] BACTERIA UA 1+(A) None Seen /HPF [facility] UROBILINOGEN UA <1 <=1 mg/dL [facility] PH UA 7.0 5.0 - 8.0 [facility] WBC UA <1 0 - 5 /HPF [facility] KETONES UA Negative Negative [facility] CLARITY UA Slt. Cloudy(A) Clear [facility] BILIRUBIN UA Negative Negative [facility] PROTEIN UA Negative Negative [facility] EPITHELIAL CELLS, URINE 0-2 /HPF [facility] LEUKOCYTE ESTERASE UA Negative Negative [facility] RBC UA 4 0 - 4 /HPF [facility] SPECIFIC GRAVITY UA 1.014 1.001 - 1.035 [facility] GLUCOSE UA Negative Negative [facility] AMORPHOUS CRYSTAL Few /HPF [facility] BLOOD UA Trace(A) Negative [facility] 01/31/2009 12:5 0 AM CDT 01/31/2009 12:55 AM CDT us Ginger Espinoza MD URINE ORDERABLES Final Result INTERFACE SYSTEM Refer to clinic/hospital department [facility] CLIA# [id number] [address] [place] [address] * (ABNORMAL) CBC WITH DIFFERENTIAL (01/31/2009 12:50 AM CDT) HEMOGLOBIN 12.0 11.8 - 14.8 g/dL [facility] RDW 13.2 11.5 - 14.5 % [facility] WBC 11.7(H) 4.0 - 9.8 K/uL [facility] MCH 31.0 27.2 - 32.6 pg [facility] MPV 9.9 9.3 - 12.4 fL [facility] HEMATOCRIT 36.1 35.5 - 44.0 % [facility] RDW-STDEV 44.9 37.1 - 48.7 fL [facility] RBC 3.87(L) 3.90 - 4.90 M/uL [facility] MCHC 33.2 31.5 - 35.5 % [facility] MCV 93.3 82.0 - 99.0 fL [facility] PLATELETS 268 140 - 350 K/uL [facility] LYMPHOCYTES 10(L) 16 - 45 % [facility] LYMPHOCYTE ABSOLUTE 1.14 0.70 - 4.50 K/uL [facility] BASOPHILS 0 0 - 2 % [facility] BASOPHILS ABSOLUTE 0.02 0.00 - 0.20 K/uL [facility] MONOCYTES 6 3 - 13 % [facility] MONOCYTE ABSOLUTE 0.64 0.10 - 1.30 K/uL [facility] NEUTROPHILS 84(H) 45 - 70 % [facility] NEUTROPHIL ABSOLUTE 9.81(H) 1.90 - 7.00 K/uL [facility] EOSINOPHILS 1 0 - 7 % [facility] EOSINOPHIL ABSOLUTE 0.13 0.00 - 0.70 K/uL [facility] Blood specimen (specimen) 01/31/2009 12:50 AM CDT 01/31/2009 12:55 AM CDT us Ginger Espinoza MD HEMATOLOGY ORDERABLES Edited Performing Organization Address [facility] de Phone Number INTERFACE SYSTEM Refer to clinic/hospital department [facility] CLIA# [id number] [address] [place] [address] * URINALYSIS WITH REFLEX CULTURE (01/31/2009 12:50 AM CDT) URINE CULTURE ORDER Not indicated [facility] Comment: Criteria for a reflex culture include one or more of the following: Abnormal nitrite, leukocyte esterase, WBCs or RBCs. Lack of qualifying criteria does not exclude the possiblity of a urinary tract infection. Dilute urine, drug interference, etc. may decrease the sensitivity of the criteria analytes. Urine specimen (specimen) 01/31/2009 12:50 AM CDT 01/31/2009 12:55 AM CDT Ginger Espinoza MD URINE ORDERABLES Final Result Performing Organization Address [facility] de Phone Number INTERFACE SYSTEM Refer to clinic/hospital department [facility] CLIA# [id number] [address] [place] [address] * (ABNORMAL) COMPREHENSIVE METABOLIC PANEL (01/31/2009 12:50 AM CDT) CO2 25 22 - 30 mmol/L [facility] BILIRUBIN TOTAL 0.2 0.2 - 1.0 mg/dL [facility] POTASSIUM 4.5 3.5 - 4.9 mmol/L [facility] TOTAL PROTEIN 6.8 6.3 - 8.6 g/dL [facility] GLUCOSE 104(H) 65 - 99 mg/dL [facility] AST 26 12 - 32 U/L [facility] BUN 16 6 - 20 mg/dL [facility] CALCIUM 8.6 8.6 - 10.2 mg/dL [facility] ALBUMIN 4.4 3.4 - 4.8 g/dL [facility] CHLORIDE 102 96 - 108 mmol/L [facility] CREATININE 0.74 0.51 - 0.95 mg/dL [facility] ALT 21 0 - 31 U/L [facility] SODIUM 136 135 - 145 mmol/L [facility] ALKALINE PHOSPHATASE 77 35 - 104 U/L [facility] GFR, >60 >=60 mL/min/1. 7 sq meter [facility] GFR >60 >=60 mL/min/1. 7 sq meter [facility] Comment: Modification of Diet in Renal Disease (MDRD) study formula. Estimated GFR rate interpretative information for both Americans and non- Americans is available on the [facility] Intranet at: [email or web address] Select: Lab Policies and Procedures Select: Reference Ranges - GFR Blood specimen (specimen) 01/31/2009 12:50 AM CDT 01/31/2009 12:55 AM CDT Ginger Espinoza MD CHEMISTRY ORDERABLES Edited INTERFACE SYSTEM Refer to clinic/hospital department [facility] CLIA# [id number] [address] [place] [address] documented in this encounter Visit Diagnoses Diagnosis Urinary tract infection, site not specified documented in this encounter Care Teams Manager Marketing Sales Relationship Specialty Start Date End Date Monty Cervantes MD [address] [facility] [address] [address] PCP - General 12/06/05 documented as of this encounter
--- OUTSIDE RECORDS SUMMARY | 2025-02-09 10:42 | XMS_ITS | Encounter Summary ---
Author Organization [facility] Address 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 [facility] [address] [place] [address] 02/23/2025 8:00 AM CDT Office Visit [facility] Heart and Vascular At [facility] [address] [facility] [address] [place] [address] Monty Cervantes MD [address] [facility] [address] [place], [place] [id number] Austin Ackerman MD [address] [facility] [address] [place], [place] [id number] 08/22/2025 11:45 AM CDT Office Visit [facility] Internal Medicine Medical [place] A [facility] [address] [facility] [address] [address] Monty Cervantes MD [address] [facility] [address] [place], [place] [phone] documented as of this encounter Visit Diagnoses Diagnosis Supervision of other high-risk (V23.89)- Primary Supervision of other high-risk documented in this encounter Care Teams Cell Reliner Relationship Specialty Start Date End Date Monty Cervantes MD [address] [facility] [address] [address] PCP - General 12/06/05 documented as of this encounter
--- OUTSIDE RECORDS SUMMARY | 2025-02-09 10:42 | XMS_ITS | Encounter Summary ---
Author Organization [facility] Address 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 Gender Identity Not on file Sexual Orientation Not on file documented as of this encounter Plan of Treatment Upcoming Encounters Date Type Department Care Team (Late st Contact Info) Description 02/17/2025 9:30 AM CDT Office Visit [facility] Internal Medicine Medical [place] A [facility] [address] [facility] [address] [place] [address] Monty Cervantes MD [address] [facility] [address] [place], [place] [address] 02/23/2025 8:00 AM CDT Office Visit [facility] Heart and Vascular At [address] [place] [address] Monty Cervantes MD [address] [facility] [address] [address] Austin Ackerman MD [address] [facility] [address] [place], [place] [id number] 08/22/2025 11:45 AM CDT Office Visit [facility] Internal Medicine Medical [place] A [place] [address] [facility] [address] [address] Monty Cervantes MD [address] [facility] [address] [place], [place] [phone] documented as of this encounter Procedures Procedure Name Priority Date/Time Associated Diagnosis Comments CT ABDOMEN PELVIS WO CONTRAST Routine 07/11/2008 3:27 PM CDT POC URINALYSIS DIPSTICK NON AUTOMATED Routine 07/11/2008 3:17 PM CDT URINALYSIS WITH REFLEX CULTURE Stat 07/11/2008 3:03 PM CDT URINALYSIS W/REFLEX MICROSCOPIC Stat 07/11/2008 3:03 PM CDT documented in this encounter Results * CT ABDOMEN PELVIS WO CONTRAST (07/11/2008 3:27 PM CDT) Anatomical Region Laterality Modality Abdomen Other 07/11/2008 3:27 PM CDT Narrative 07/11/2008 3:48 PM CDT [facility] [address] [place], [place] [address] Admit Date: 07/11/2008 STEPHANI DUNLAP Sex: F Admit Prov: ER, AUTHORIZED P Date: 1975 Primary Care Prov: MONTY CERVANTES CMRN: [id number] Room: ER-A SSN: [id number] IMAGING SERVICES Ordering Prov: N/A Accession Number: [id number] Interpretation CT abdomen and pelvis without contrast 07-11-08 Indication: Right flank pain, hematuria. Technique: [address] axial images were acquired without contrast. Findings: A 3 to 4 mm stone is present at the right ureteropelvic junction. The distal ureter is normal in appearance. An additional calculus is present within the right inferior pole measuring 3 mm. There is minimal right-sided hydronephrosis. The left kidney is unremarkable without stone or hydronephrosis. The urinary bladder contains fluid and is mildly distended. Lung bases are clear. The unenhanced appearance of the liver, spleen, pancreas, and gallbladder are normal. No free air or free fluid is identified. The bowel is unremarkable. Minimal atherosclerotic calcifications are present within the aorta. Phleboliths are present within the pelvis. Impression: Right ureteropelvic junction stone with mild hydronephrosis. . Dictated by: CAMRON CHOW 07/11/2008 15:44 Electronically signed by: CAMRON CHOW 07/11/2008 15:48 Procedure Note Camron Chow - 07/11/2008 [facility] [address] [place], [place] [address] Admit Date: 07/11/2008 STEPHANI DUNLAP Sex: F Admit Prov: VIPIN CLOUD Date: 1975 Primary Care Prov: MONTY CERVANTES CMRN: [id number] [facility] SS[facility]: [id number] IMAGING SERVICES Ordering Prov: N/A Interpretation CT abdomen and pelvis without contrast 07-11-08 Indication: Right flank pain, hematuria. Technique: [address] axial images were acquired without contrast. Findings: A 3 to 4 mm stone is present at the right ureteropelvic junction.The distal ureter is normal in appearance. An additional calculus ispresent within the right inferior pole measuring 3 mm. There is minimalright-sided hydronephrosis. The left kidney is unremarkable without stone or hydronephrosis. The urinary bladder contains fluid and is mildlydistended. Lung bases are clear. The unenhanced appearance of the liver,spleen, pancreas, and gallbladder are normal. No free air or free fluid is identified. The bowel is unremarkable. Minimal atherosclerotic calcifications are present within the aorta. Phleboliths are presentwithin the pelvis. Impression: Right ureteropelvic junction stone with mild hydronephrosis. . Dictated by: CAMRON CHOW 07/11/2008 15:44 Electronically signed by: CAMRON CHOW 07/11/2008 15:48 us Charlie Colmenares MD CT ORDERABLES Final Result * (ABNORMAL) POC URINALYSIS DIPSTICK NON AUTOMATED (07/11/2008 3:17 PM CDT) PROTEIN UA Negative Negative [facility] PH UA 7.0 5.0 - 8.0 [facility] COLOR UA Yellow [facility] BILIRUBIN UA Negative Negative [facility] GLUCOSE [facility]A Negative Negative [facility] LEUKOCYTE ESTERASE UA Negative Negative [facility] CLARITY UA Clear [facility] NITRITE UA Negative Negative [facility] SPECIFIC GRAVITY UA 1.005 1.001 - 1.030 [facility] BLOOD UA 2+(A) Negative [facility] KETONES UA Negative Negative [facility] UROBILINOGEN UA Normal <=1 mg/dL [facility] Urine specimen (specimen) 07/11/2008 3:17 PM CDT 07/11/2008 3:17 PM CDT us Authorized P Er POINT OF CARE TESTING Final Resu lt INTERFACE SYSTEM Refer to clinic/hospital department [facility] CLIA# [id number] [address] [place], [place] [address] * (ABNORMAL) URINALYSIS (07/11/2008 3:03 PM CDT) RBC UA 1 0 - 4 /HPF [facility] Comment: Microscopic verified by repeat analysis. Suggest red cell hemolysis or interfering substance. KETONES UA Negative Negative [facility] CLARITY UA Clear Clear [facility] BILIRUBIN UA Negative Negative [facility] PROTEIN UA Negative Negative [facility] LEUKOCYTE ESTERASE UA Negative Negative [facility] EPITHELIAL CELLS, URINE 0-2 /HPF [facility] SPECIFIC GRAVITY UA 1.003 1.001 - 1.035 [facility] Comment: Verified by repeat analysis. GLUCOSE UA Negative Negative [facility] BLOOD UA 3+(A) Negative [facility] COLOR UA Colorless [facility] NITRITE UA Negative Negative [facility] UROBILINOGEN UA <1 <=1 mg/dL [facility] PH UA 6.5 5.0 - 8.0 [facility] 07/11/2008 3:03 PM CDT 07/11/2008 3:19 PM CDT Charlie Colmenares MD URINE ORDERABLES Final Result Performing Organization Address City/State/[facility] Co de Phone Number INTERFACE SYSTEM Refer to clinic/hospital department [facility] CLIA# [id number] [address] [facility] [place] [address] * URINALYSIS WITH REFLEX CULTURE (07/11/2008 3:03 PM CDT) URINE CULTURE ORDER Not indicated [facility] Comment: Criteria for a reflex culture include one or more of the following: Abnormal nitrite, leukocyte esterase, WBCs or RBCs. Lack of qualifying criteria does not exclude the possiblity of a urinary tract infection. Dilute urine, drug interference, etc. may decrease the sensitivity of the criteria analytes. Urine specimen (specimen) 07/11/2008 3:03 PM CDT 07/11/2008 3:19 PM CDT us Charlie Colmenares MD URINE ORDERABLES Final Result INTERFACE SYSTEM Refer to clinic/hospital department [facility] CLIA# [id number] [address] [place] [address] documented in this encounter Visit Diagnoses Not on filedocumented in this encounter Care Teams Home Economics Extension Worker Relationship Specialty Start Date End Date Monty Cervantes MD [address] [facility] [address] [address] PCP - General 12/06/05 documented as of this encounter
--- OUTSIDE RECORDS SUMMARY | 2025-02-09 10:42 | XMS_ITS | Encounter Summary ---
Author Organization [facility] Address [address] [place] [address] Care Team Providers Care Wood Cut Engraver Name Role Phone Monty Cervantes MD Primary Care Provider Encounter Details Date Type Department Care Team (Late st Contact Info) Description 10/27/[address] 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 Gender Identity Not on file Sexual Orientation Not on file documented as of this encounter Progress Notes * Monty Cervantes MD - 03/31/2008 10:29 AM CDT TIME:09:04 am PATIENT`S HOME PHONE: PATIENT`S WORK PHONE: PATIENT`S INSURANCE: [employer] WHO TOOK THE CALL: Erin Johnson GENERAL INFORMATION ALTERNATIVE PHONE NUMBER: [phone] CURRENT ALLERGY LIST: [facility] NUMBER: [phone] SECTION 1: pt states that she has UTI, blood in urine, frequency, pressure, started yesterday, drank cranberry juice, DOCTOR`S RESPONSE: bal 10/27/07 at 09:25 am MEDICATIONS: Call in to Pharmacy CIPRO ORAL TABLET 500 MG, 1 Two Times A Day, 10 Dispensed, status: NEW PRESCRIPTION, 10/27/2007. FINAL ACTION: oralia 10/27/07 at 09:47 am Spoke with patient 10/27/07 at 09:49 am. Called pharmacy at 10/27/07 at 09:47 am. Electronically Signed by: Erin Johnson on Saturday, October 27, 2007 documented in this encounter Plan of Treatment Upcoming Encounters Date Type Department Care Team (Late st Contact Info) Description 02/17/2025 9:30 AM CDT Office Visit [facility] Internal Medicine [facility] [address] [place] [address] [address] [place] [address] Monty Cervantes MD [address] [place] [address] [address] [place] [address] 02/23/2025 8:00 AM CDT Office Visit [facility] Heart and Vascular At [place] [address] [facility] [address] [place] [address] Monty Cervantes MD [address] [place] [address] [address] [place] [address] Austin Ackerman MD [facility] [address] [facility] [address] [place] [address] 08/22/2025 11:45 AM CDT Office Visit [facility] Internal Medicine [facility] [address] [place] [address] [address], [place] [address] Monty Cervantes MD [address] [place] [address] [address] [place] [address] documented as of this encounter Visit Diagnoses Not on filedocumented in this encounter Care Teams Wood Cut Engraver Relationship Specialty Start Date End Date Monty Cervantes MD [address] [place], [place] [phone] PCP - General 12/06/05 documented as of this encounter
--- OUTSIDE RECORDS SUMMARY | 2025-02-09 10:42 | XMS_ITS | Encounter Summary ---
Author Organization [facility] Address 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 [facility] [address] [address] 02/23/2025 8:00 AM CDT Office Visit [facility] Heart and Vascular At [facility] [address] [facility] [address] [place] [address] Monty Cervantes MD [address] [facility] [address] [address] Austin Ackerman MD [address] [facility] [facility] [address] [place], [place] [address] 08/22/2025 11:45 AM CDT Office Visit [facility] Internal Medicine Medical [place] A [place] [address] [facility] [address] [address] Monty Cervantes MD [address] [facility] [address] [place], [place] [address] documented as of this encounter Procedures Procedure Name Priority Date/Time Associated Diagnosis Comments XR RETROGRADE PYELOGRM W WO KUB Routine 08/19/2008 3:25 PM CDT HEMOGLOBIN AND HEMATOCRIT Stat 08/19/2008 1:45 PM CDT URINE CULTURE Stat 08/19/2008 1:00 PM CDT documented in this encounter Results * XR RETROGRADE PYELOGRM W WO KUB (08/19/2008 3:25 PM CDT) Anatomical Region Laterality Modality Abdomen Other 08/19/2008 3:25 PM CDT Narrative 08/21/2008 6:17 PM CDT [facility] [address] [place], [place] [address] Admit Date: 08/19/2008 KAYLEN DUNLAP Sex: F Admit Prov: SARKAR JATINDER Date: 1975 Primary Care Prov: MONTY CERVANTES CMRN: [id number] Room: [facility] SSN: [address] [place] [address] IMAGING SERVICES Ordering Prov: JATINDER SARKAR Accession Number: [id number] Interpretation Fluoroscopic guidance was used by the surgeon to assist with performance of this intra-operative procedure. Please refer to surgeon s operative report for specific details. Dictated by: RADIOLOGY, DEPARTMENT O Electronically signed by: RADIOLOGY, DEPARTMENT 08/21/2008 18:12 Transcribed: 08/21/2008 17:02 AMK Procedure Note Radiology, Radiologist - 08/21/2008 [facility] [address] [place], [place] [address] Admit Date: 08/19/2008 KAYLEN DUNLAP Sex: F Admit Prov: ANTONINAJATINDER CHAPMAN Date: 1975 Primary Care Prov: DEV MONTY Klein CMRN: [id number] Room: SURG-A SSN: [id number] IMAGING SERVICES Ordering Prov: SARKARJATINDER Interpretation Fluoroscopic guidance was used by the surgeon to assist withperformance of this intra-operative procedure. Please refer to surgeon s operativereport for specific details. Dictated by: RADIOLOGY, DEPARTMENT O Electronically signed by: RADIOLOGY, DEPARTMENT 08/21/2008 18:12 Transcribed: 08/21/2008 17:02 AMK Jatinder Quintero MD DIAGNOSTIC IMAGING ORDERABLES Final Result * HEMOGLOBIN AND HEMATOCRIT (08/19/2008 1:45 PM CDT) HEMOGLOBIN 13.8 11.8 - 14.8 g/dL [facility] HEMATOCRIT 40.8 35.5 - 44.0 % [facility] Blood specimen (specimen) 08/19/2008 1:45 PM CDT 08/19/2008 1:52 PM CDT Jatinder Quintero MD HEMATOLOGY ORDERABLES Final R esult INTERFACE SYSTEM Refer to clinic/hospital department [facility] CLIA# [id number] [address] [place] [address] * URINE CULTURE (08/19/2008 1:00 PM CDT) PRELIMINARY REPORT Pending [facility] FINAL REPORT No growth 24 hours [facility] 08/19/2008 1:00 PM CDT 08/19/2008 1:27 PM CDT Narrative INTERFACE SYSTEM - 08/20/2008 8:00 AM CDT [id number] us Jatnider Quintero MD MICROBIOLOGY - GENERAL ORDERA BLES Final Result INTERFACE SYSTEM Refer to clinic/hospital department [facility] CLIA# [id number] [address] [place] [address] documented in this encounter Visit Diagnoses Not on filedocumented in this encounter Care Teams Replenishment Analyst Relationship Specialty Start Date End Date Monty Cervantes MD [address] [facility] [address] [place] [address] PCP - General 12/06/05 documented as of this encounter
--- OUTSIDE RECORDS SUMMARY | 2025-02-09 10:42 | XMS_ITS | Encounter Summary ---
Author Organization [facility] Address 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 Gender Identity Not on file Sexual Orientation Not on file documented as of this encounter Plan of Treatment Upcoming Encounters Date Type Department Care Team (Late st Contact Info) Description 02/17/2025 9:30 AM CDT Office Visit [facility] Internal Medicine Medical [place] A [facility] [address] [facility] [address] [place] [address] Monty Cervantes MD [address] [place] [address] [address] [place] [address] 02/23/2025 8:00 AM CDT Office Visit [facility] Heart and Vascular At [facility] [address] [facility] [address] [place] [address] Monty Cervantes MD [address] [place] [address] [address] [place] [address] Austin Ackerman MD [address] [facility] [address] [place], [place] [address] 08/22/2025 11:45 AM CDT Office Visit [facility] Internal Medicine Medical [facility] [address] [facility] [address] [address] Monty Cervantes MD [address] [facility] [address] [place], [place] [address] documented as of this encounter Visit Diagnoses Diagnosis Unspecified local infection of skin and subcutaneous tissue documented in this encounter Care Teams Senior Digital Designer Relationship Specialty Start Date End Date Monty Cervantes MD [address] [facility] [address] [place], [place] [address] PCP - General 12/06/05 documented as of this encounter
--- OUTSIDE RECORDS SUMMARY | 2025-02-09 10:42 | XMS_ITS | Encounter Summary ---
Author Organization [facility] Address [address] [place] [address] Care Team Providers Care Airport Baggage Screener Name Role Phone Monty Cervantes MD Primary Care Provider Encounter Details Date Type Department Care Team (Late st Contact Info) Description 08/19/2007 Orders Only [facility] Internal Medicine Medical [place] [facility] [address] [facility] [address] [place] [address] Monty Cervantes MD [address] [address] [place] [address] Social History Tobacco Use Types Packs/Day Years Used Date Smoking Tobacco: Never Assessed Comments Unknown Sex and Gender Information Value Date Recorded Sex Assigned at Not on file 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 ALTERNATIVE PHONE NUMBER: [phone] WHO CALLED: Patient called. CURRENT ALLERGY LIST: [facility] NUMBER: [phone] PROBLEMS: Patient called stating that she is having vaginal itching and burning.........little discharge.......patient states that it is a yeast infection and she has tried the OTC Monistat one dose treatment and it is not helping..........Can she have a Diflucan?? SECTION 1: DOCTOR`S RESPONSE: bal 08/19/07 at 03:51 pm MEDICATIONS: Call in to Pharmacy DIFLUCAN ORAL TABLET 150 MG, 1 po, 1 Dispensed, 1 Fills, status: NEW PRESCRIPTION, 08/19/2007. FINAL ACTION: erendira 08/19/07 at 04:25 pm Spoke with patient 08/19/07 at 04:25 pm. Called pharmacy at 08/19/07 at 04:25 pm. Electronically Signed by: Kamille Flores on Sunday, August 19, 2007 documented in this encounter Plan of Treatment Upcoming Encounters Date Type Department Care Team (Late st Contact Info) Description 02/17/2025 9:30 AM CDT Office Visit [facility] Internal Medicine [facility] [address] [facility] [facility] [address] [place] [address] Monty Cervantes MD [address] [place] [address] [address] [place] [address] 02/23/2025 8:00 AM CDT Office Visit [facility] Heart and Vascular At [facility] [address] [place] [address] Monty Cervantes MD [address] [place] [address] [address] [place] [address] Austin Ackerman MD [address] [facility] [address] [place] [address] 08/22/2025 11:45 AM CDT Office Visit [facility] Internal Medicine [facility] [address] [address] Monty Cervantes MD [address] [address] documented as of this encounter Visit Diagnoses Not on filedocumented in this encounter Care Teams Airport Baggage Screener Relationship Specialty Start Date End Date Monty Cervantes MD [address] [address] PCP - General 12/06/05 documented as of this encounter
--- OUTSIDE RECORDS SUMMARY | 2025-02-09 10:42 | XMS_ITS | Encounter Summary ---
Author Organization [facility] Address [address] [place] [address] Care Team Providers Care Tourist Information Officer Name Role Phone Monty Cervantes MD Primary Care Provider Encounter Details Date Type Department Care Team (Late st Contact Info) Description 07/07/[address] 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 [facility] [address] [address] 02/23/2025 8:00 AM CDT Office Visit [facility] Heart and Vascular At [facility] [address] [facility] [address] [place] [address] Monty Cervantes MD [address] [facility] [address] [address] Austin Ackerman MD [address] [facility] [address] [place] [address] 08/22/2025 11:45 AM CDT Office Visit [facility] Internal Medicine Medical [place] [facility] [place] [address] [facility] [address] [place] [address] Monty Cervantes MD [address] [facility] [address] [place] [address] documented as of this encounter Procedures Procedure Name Priority Date/Time Associated Diagnosis Comments XR ABDOMEN 1 VW Routine 07/07/2009 11:10 AM CDT documented in this encounter Results * XR ABDOMEN 1 VW (07/07/2009 11:10 AM CDT) Anatomical Region Laterality Modality Abdomen Other 07/07/2009 11:1 0 AM CDT Narrative 07/07/2009 12:41 PM CDT [facility] [address] [place], [place] [address] Admit Date: 07/07/2009 STEPHANI DUNLAP [place] Sex: F Admit Prov: ROE SARKAR Date: 1975 Primary Care Prov: MONTY CERVANTES CMRN: [id number] Room: [facility] SSN: [id number] IMAGING SERVICES Ordering Prov: N/A Accession Number: [id number] Interpretation KUB, 07/07/2009 HISTORY: Calculus of kidney, right-sided pain. FINDINGS: Comparison is made to prior study of 01/13/2009. Bowel gas pattern is nonspecific, without obstruction. There are small calcifications seen in the pelvis which are similar to prior examination. IMPRESSION: 1. Nonspecific gas pattern. 2. Multiple pelvic calcifications appear largely unchanged from prior examination. If stone is still suspected in the ureter, CT without contrast would be recommended. . Dictated by: KEVIN RHODES 07/07/2009 12:30 Electronically signed by: KEVIN RHODES 07/07/2009 12:40 Transcribed: 07/07/2009 12:34 DKT Procedure Note Kevin Rhodes DO - 07/07/2009 [facility] [address] [place], [place] [address] Admit Date: 07/07/2009 STEPHANI DUNLAP Sex: F Admit Prov: ROE SARKAR Date: 1975 Primary Care Prov: MONTY CERVANTES CMRN: [id number] Room: [facility] SSN: [address] [place] [address] IMAGING SERVICES Ordering Prov: N/A Interpretation KUB, 07/07/2009 HISTORY: Calculus of kidney, right-sided pain. FINDINGS: Comparison is made to prior study of 01/13/2009. Bowel gas patternis nonspecific, without obstruction. There are small calcifications seenin the pelvis which are similar to prior examination. IMPRESSION: 1. Nonspecific gas pattern. 2. Multiple pelvic calcifications appear largely unchanged fromprior examination. If stone is still suspected in the ureter, CT withoutcontrast would be recommended. . Dictated by: KEVIN RHODES 07/07/2009 12:30 Electronically signed by: KEVIN RHODES 07/07/2009 12:40 Transcribed: 07/07/2009 12:34 DKT Roe Quintero MD DIAGNOSTIC IMAGING ORDERABLES Final Result documented in this encounter Visit Diagnoses Diagnosis Calculus of kidney documented in this encounter Care Teams Tourist Information Officer Relationship Specialty Start Date End Date Monty Cervantes MD [address] [facility] [address] [address] PCP - General 12/06/05 documented as of this encounter
== END 2025-02-09 09:41 | disposition home or self-care (01) ==
PROVIDERS: PCP Nurse Practitioner Family; Visit Provider Nurse Practitioner Family
DX: Z12.2 Encounter for screening for malignant neoplasm of respiratory organs (principal); Z87.891 Personal history of nicotine dependence
CPT/HCPCS: 71271